=== PATIENT | male | born 1935 | race Caucasian/White ===

== ENCOUNTER 2016-11-26 18:59 | Inpatient (IN) ==
[2016-11-26] MEDS ORDERED: NS 1,000 ML IV ONE (19:59)
[2016-11-26] MEDS ORDERED: NS 500 ML IV ONE (19:59)
[2016-11-26] MEDS ORDERED: MERREM 1 GM in NS 50 ML IV ONE (20:05)
[2016-11-26] MEDS ORDERED: VANCOMYCIN IV PER PHARMACY MISC SCH (20:15)
[2016-11-26] MEDS ORDERED: ZOFRAN IV ONE (20:24)
[2016-11-26] MEDS ORDERED: TYLENOL PR ONE (20:24)
[2016-11-26 20:38] LABS: ALLEN TEST YES; BE 0.1 mmoll (-3.0-3.0); BLOOD TYPE ARTERIAL; DRAW SITE R BRACHIAL; METHB 0.5 % (0.0-1.5); O2(CT) 14.1 mL/dL (15.0-23.0); PCO2(98.6) 33 mmHg (35-45); PO2(98.6) 60 mmHg (60-100); SAMPLE BLOOD; SAO2 97.2 % (95.0-100.0); THB 10.6 g/dL (11.5-17.4); pH(98.6) 7.46 (7.35-7.45)
[2016-11-26 20:40] LABS: MODALITY CANNULA
[2016-11-26 20:49] LABS: BASO% 0.1 % (0.0-0.8); EOS# 0.05 X1000 (0.0-0.7); EOS% 0.2 % (0.0-10.0); HEMATOCRIT 34.6 % (42.0-52.0); HEMOGLOBIN 10.9 g/dL (14.0-18.0); IMM GRAN# 0.11 X1000 (0.0-0.04); IMM GRAN% 0.4 % (0.0-0.5); LYMPH# 0.95 X1000 (1.2-3.4); MCH 27.7 PG (27-31); MCHC 31.5 g/dL (33-37); MCV 87.8 FL (81-99); MONO# 0.72 X1000 (0.11-0.59); MONO% 2.3 % (1.7-9.3); MPV 10.6 FL (7.4-10.4); PLT 194 X1000 (130-400); RBC 3.94 XMIL (4.7-6.1)
[2016-11-26 20:56] LABS: INR 1.06; PROTIME 11.2 Seconds (9.2-11.7)
[2016-11-26 20:57] LABS: MANUAL DIFF NEEDED? NO
[2016-11-26 21:17] LABS: ALBUMIN 3.6 g/dL (3.5-5.0); CALCIUM 8.6 mg/dL (8.8-10.2); MAGNESIUM 1.5 mg/dL (1.5-2.7); POTASSIUM 4.4 mmol/L (3.5-5.1); TOTAL BILIRUBIN 0.35 mg/dL (0.20-1.00); TOTAL PROTEIN 7.2 g/dL (6.3-8.3)
[2016-11-26 21:38] LABS: URINE CULTURE NEEDED? NO; URINE MICRO REVIEW NEEDED? NO; URINE SOURCE CATH
[2016-11-26 21:41] LABS: BILIRUBIN URINE NEGATIVE (NEGATIVE); BLOOD URINE MODERATE (NEGATIVE); COLOR YELLOW; GLUCOSE URINE 500 mg/dL (NEGATIVE); LEUKOCYTES URINE NEGATIVE (NEGATIVE); NITRITE URINE NEGATIVE (NEGATIVE); PH URINE 5.5; PROTEIN URINE 100 mg/dL (NEGATIVE); SP GRAVITY URINE 1.018; TURBIDITY URINE HAZY (CLEAR); UR EPITHELIAL CELLS <10 /HPF (<10); URINE BACTERIA NEGATIVE /HPF; URINE RBC <10 /HPF (<10); URINE WBC <10 /HPF (<10); UROBILINOGEN URINE NORMAL (NORMAL)
[2016-11-26] MEDS ORDERED: VANCOMYCIN 1,600 MG in NS 250 ML IV ONE (22:00)
--- NOTE | 2016-11-26 22:14 | Diag Imaging Result Doc PS360 ---
EXAM: CHEST-PORTABLE HISTORY: SEPSIS TECHNIQUE: Portable COMPARISON: 01/27/2016 FINDINGS: Patient is rotated to the right. There are infiltrates in the mid and lower right lung with a small right effusion. The heart is mildly prominent. There is been prior surgery to the lower neck. No right-sided PICC line on the current exam. IMPRESSION: Infiltrates in the mid and lower right lung with small effusions and mild cardiomegaly. Electronically signed by Yassine Pruitt 11/26/2016 10:12 PM
--- NOTE | 2016-11-26 22:55 | PROVIDER DOCUMENTATION ---
This chart was entered by Corbin Lomas Scribe, acting as scribe for Jadon Bullard MD. HPI-Abdominal Pain/GI Problem - General Stated Complaint: vomiting, AMS Time Seen by Provider: 11/26/16 19:45 Source: EMS Allergies/Adverse Reactions: Patient Allergies Allergy/AdvReac Type Severity Reaction Status Date / Time Penicillins Allergy Severe SWELLING Verified 11/26/16 20:48 levofloxacin [From Levaquin] Allergy Mild RASH Verified 11/26/16 20:48 Home Medications: Home Medication List Medication Instructions Recorded Confirmed Last Taken Type Quetiapine Fumarate [Seroquel] 12.5 mg PO HS 05/02/15 10/31/16 10/30/16 21:00 History Tamsulosin [Flomax] 0.4 mg PO QHS 05/02/15 10/31/16 10/30/16 21:00 History Sertraline [Zoloft] 50 mg PO DAILY 07/11/15 10/31/16 10/30/16 09:00 History Isosorbide Mononitrate E.r. [Imdur] 60 mg PO DAILY 12/25/15 10/31/16 10/30/16 21 :00 History Amiodarone [Cordarone] 200 mg PO DAILY #30 tablet 12/31/15 10/31/16 10/30/16 09: 00 Rx Iron Carbonyl/Ascorbic Acid 1 each PO BID #30 tablet 01/26/16 10/31/16 10/30/16 20:00 Rx [Icar-C] Lactulose 30 ml PO BID #0 01/26/16 10/31/16 10/30/16 21:00 Rx Acetaminophen [Tylenol Extra 500 mg PO Q6H PRN PRN 07/01/16 10/31/16 08/03/16 History Strength] Ipratropium/Albuterol Sulfate 3 ml IH Q8H PRN PRN 07/01/16 10/31/16 08/03/16 History [Iprat-Albut 0.5-3(2.5) mg/3 ml] Metformin HCl 250 mg PO TID 07/01/16 10/31/16 10/30/16 21:00 History Linaclotide [Linzess] 145 mcg PO DAILY 08/03/16 10/31/16 10/30/16 09:00 History Ondansetron HCl [Zofran] 4 mg PO Q6H PRN PRN 08/03/16 10/31/16 08/03/16 History Trazodone HCl 50 mg PO HS 08/03/16 10/31/16 10/30/16 21:00 History Hydrocodone/APAP 10 mg/325 mg 1 each PO Q4H PRN PRN #30 tablet 08/05/1610/30/16 21:00 Rx [[place]-10] Insulin Glargine,Hum.rec.anlog 15 unit SQ DAILY 10/27/16 10/31/16 10/30/16 09: 00 History [Lantus Solostar] Clopidogrel [Plavix] 75 mg PO DAILY #30 tablet 11/01/16 Unknown Rx Collagenase Clostridium Hist. 1 applic TP DIRECTED #30 11/01/16 Unknown Rx [Santyl] oint...g. Hydralazine [Apresoline] 25 mg PO TID #90 tablet 11/01/16 Unknown Rx Hydrocodone/APAP 10 mg/325 mg 1 each PO Q4H PRN PRN #10 tablet 11/01/16 Unknown Rx [[place]-10] - History of Present Illness-ABD Nature of Presenting Problems: Pt is a 81 yowm who [facility] staff reports that at 1700 today, pt became acutely altered, developed rigors, fever (103.6 in ED), and vomiting. snf gave pt PO tylenol and zofran, but pt vomited it up. EMS was told pt was hyperglycemic and confirmed on site that pt's blood glucose level was 377 and pt was hot to the touch. Abdominal Pain Onset Location: reports: generalized abdomen Pain Radiation: reports: no radiation Quality of Pain: reports: other (unable to obtain per pt's condition) Severity in ED: reports: moderate, severe Onset/Duration: reports: 1-3 hours ago Timing: reports: still present Associated Symptoms: reports: fatigue, fever/chills, loss of appetite, malaise, nausea, vomiting, weakness, trouble walking. denies: anxiety, chest pain, constipation, cough, diarrhea, dizziness, headaches, heartburn, muscle aches, shortness of breath, syncope Last BM: unsure Review of Systems - Adult - REVIEW OF SYSTEMS - ADULT Constitutional: reports: chills, fever, fatique. denies: night sweats, weight gain, weight loss Eyes: reports: no symptoms reported Ears, Nose, Mouth & Throat: reports: no symptoms reported Cardiovascular: reports: no symptoms reported Respiratory: reports: no symptoms reported Gastrointestinal: reports: nausea, vomiting. denies: abdominal pain, hematemesis, constipation, diarrhea, difficulty swallowing, frequent heartburn, poor appetite, rectal bleeding Genitourinary: reports: no symptoms reported Musculoskeletal: reports: no symptoms reported Integumentary: reports: no symptoms reported Neurological: reports: no symptoms reported Psychiatric: reports: other (AMS). denies: anxiety, anti-depressant use, alcohol/drug dependence, depression, emotional problems, insomnia, panic attacks , suicidal thoughts Endocrine: reports: no symptoms reported Hematologic/Lymphatic: reports: no symptoms reported Allergic/Immunologic: reports: no symptoms reported All Other Systems: Reviewed and Negative Past History - Adult - PAST MEDICAL HISTORY-ADULT Review of Records: reports: Nursing Assessment Review, Medications Reviewed Cardiovascular: reports: A-Fib, CAD, CHF, HTN, palpitations, PVD Gastrointestinal: reports: GERD Genitourinary: reports: cancer Neurological: reports: spinal cord/brain injury Endocrine/Immune: reports: Diabetes - PRIOR SURGERIES/PROCEDURES Surgical/Procedure History: reports: back/neck (x4; neck Sx), other (head hematoma) - IMMUNIZATION STATUS Childhood Immunizations: NUTD, See Nurse Assessment Flu Vaccine: See Nurse Assessment Physical Exam-General - PHYSICAL EXAM-ADULT Initial Vital Signs Reviewed: Yes - CONSTITUTIONAL General Appearance: appears well, alert, moderate distress, other (Pt lying on right side, non-verbal) - RESPIRATORY Respiratory: chest non-tender, lungs clear, normal breath sounds, no pleuratic chest pain, no respiratory distress, no accessory muscle use. negative: respiratory distress, decreased breath sounds, accessory muscle use, wheezing - CARDIOVASCULAR Cardiovascular: normal peripheral pulses, tachycardia. negative: regular rate, rhythm, bradycardia, irregularly irregular - GASTROINTESTINAL (ABDOMEN) Abdominal Exam: normal bowel sounds, non tender, soft, no organomegaly, no pulsatile mass. negative: guarding, rebound, tenderness - PSYCHIATRIC Psych/Mental Status: disheveled. negative: normal mood/affect, normal thought content, normal thought process, oriented x 3 Progress - PLAN OF CARE/RESULTS Progress/Plan/Lab Results: Orders Category Date Time Status Cardiac Monitoring DIRECTED Care 11/26/16 19:54 Active Gibson Cath Insertion ORDERED Care 11/26/16 20:00 Active IV Insertion ORDERED Care 11/26/16 19:54 Active IV Insertion ORDERED Care 11/26/16 20:00 Active Intake and Output-Strict ORDERED Care 11/26/16 20:00 Active Notify MD of + Sepsis Screen NOW Care 11/26/16 19:54 Active Notify MD/PA/SALLY for exam NOW Care 11/26/16 20:00 Active Repeat Vital Signs .Blood Pressure Care 11/26/16 20:00 Active Repeat Vital Signs .Heart Rate Care 11/26/16 20:00 Active Repeat Vital Signs .Oxygen Saturation Care 11/26/16 20:00 Active Repeat Vital Signs .Respiratory Rate Care 11/26/16 20:00 Active Repeat Vital Signs .Temp Care 11/26/16 20:00 Active CHEST-PORTABLE [RAD] Stat Exams 11/26/16 20:07 Ordered ABG [RESP] Routine Lab 11/26/16 19:58 Ordered BLOOD CULTURE [BLDCUL] Stat Lab 11/26/16 19:54 Uncollected CBC WITH DIFF [HEME] Stat Lab 11/26/16 19:54 Uncollected CK PROFILE [SP CHEM] Stat Lab 11/26/16 19:54 Uncollected COMPREHENSIVE METABOLIC PANEL [CHEM] Stat Lab 11/26/16 19:54 Uncollected Ketone [ACETONE SERUM] [CHEM] Stat Lab 11/26/16 20:06 Uncollected LACTATE, PLASMA [CHEM] Stat Lab 11/26/16 19:54 Uncollected LACTATE, PLASMA [CHEM] Timed Lab 11/26/16 20:00 Received MAGNESIUM [CHEM] Stat Lab 11/26/16 19:58 Uncollected PROTIME WITH INR [COAG] Stat Lab 11/26/16 19:54 Uncollected PTT [COAG] Stat Lab 11/26/16 19:54 Uncollected TROPONIN T Stat Lab 11/26/16 19:54 Uncollected TYPE & SCREEN [BBK] Stat Lab 11/26/16 19:58 Uncollected URINALYSIS W/POSS RFLX CULT-1 [URINALYSIS] Stat Lab 11/26/16 19:54 Uncollected 0.9% Sodium Chloride Inj [Ns] 1,000 ml Med 11/26/16 19:59 Discontinued IV As Directed 0.9% Sodium Chloride Inj [Ns] 500 ml Med 11/26/16 19:59 Active IV 999 mls/hr Meropenem [Merrem] 1 gm Med 11/26/16 20:05 Active 0.9% Sodium Chloride Inj [Ns] 50 ml IV NOW Pharmacy Order [Vancomycin IV Per Pharmacy] Med 11/26/16 20:15 Ordered 1 each MISC DIRECTED Oxygen Device Stat Oth 11/26/16 19:54 Active Result Diagrams: 11/26/16 20:17 11/26/16 20:17 - XRAY 1 XRAY: Bilateral XRAY Study: Chest Impression: See EMR Report XRAY Interpretation: RLL pneumonia - Dr. Bullard Departure - Departure Date of Disposition Decision: 11/26/16 Time of Disposition Decision: 20:19 DIAGNOSIS: Sepsis Qualifiers: Sepsis type: sepsis due to unspecified organism Qualified Code(s): A41.9 - Sepsis, unspecified organism Pneumonia involving right lung Qualifiers: Pneumonia type: due to unspecified organism Disposition: ADMITTED INPATIENT 09 Certified Medical Emergency: Emergent Condition: Serious Referrals and Follow-Ups: None,PCP [Primary Care Provider] - - Critical Care Note This patient required my direct & personal management of CC.: No This chart was documented by the indicated scribe, (Corbin Lomas Scribe) and accurately reflects the services I performed and decisions made by me, Jadon Bullard MD, as attested by the provider's signature.
--- NOTE | 2016-11-26 23:24 | HISTORY AND PHYSICAL ---
PRIMARY CARE PHYSICIAN: None, is assisted resident. CHIEF COMPLAINT: Of having fever, chills for 3-4 days. HISTORY OF PRESENTING ILLNESS: An 80-year-old elderly male with a history of diabetes mellitus type 2, coronary artery disease, CVA, atrial fibrillation and dementia who is a resident of [facility] assisted. Was brought to the emergency department due to patient having fever and chills for the past 3 days. As per staff there they noticed that patient was trembling and he seemed to be more weak than usual and subsequently he was sent to the emergency department. At ER he was evaluated. He had imaging done which was consistent with pneumonia and due to his presenting symptoms, it was thought that he would need hospitalization for further management. At the time of my examination he had denied any headache, chest pain, hemoptysis, melena, but complained of having cough productive, fever, chills and not feeling well. PAST MEDICAL HISTORY: Include diabetes mellitus type 2, peripheral vascular disease, coronary artery disease, CT, dementia, CVA, atrial fibrillation, intracranial hemorrhage. PAST SURGICAL HISTORY: Tibial bypass, coronary stent, left forefoot amputation, back surgery, neck surgery, craniotomy for intracranial bleed. ALLERGIES: Penicillin and Levaquin. CURRENT MEDICATIONS: As listed in MAR. SOCIAL HISTORY: He is a former smoker. No history of alcohol or illicit drug use. Mostly wheelchair bound but is able to transfer with assistance. FAMILY HISTORY: Positive for coronary disease in father. REVIEW OF SYSTEMS: Twelve point review of system is as in HPI. Other systems negative. PHYSICAL EXAMINATION: GENERAL: Frail elderly male. He is resting comfortably now. VITAL SIGNS: Temperature 102.2 degrees, pulse 75, respiration is 20, blood pressure is 165/62. HEENT: Atraumatic, normocephalic. PERRLA. NECK: No masses. CHEST: Bibasilar rales. CARDIOVASCULAR: Regular rate and rhythm. ABDOMEN: Soft. Positive bowel sounds. EXTREMITIES: Left forefoot amputation. No edema. NEURO: He is awake, alert, oriented x2. : No bladder distention. SKIN: Warm. LABORATORIES AND STUDIES: WBCs 31.28, hemoglobin 10.9, hematocrit 34.6, platelets is 194,000. Sodium 136, potassium 4.4, chloride 97, CO2 is 22, BUN is 29, creatinine is 1.2, glucose is 284, plasma lactic 2.7. ASSESSMENT: 81-year-old male with a history of diabetes mellitus type 2, coronary disease, cerebrovascular accident and dementia, was brought to the emergency department from assisted due to patient having fever and chills and a productive cough. He was evaluated in the emergency room, he had imaging done which did show infiltrates in the mid and lower right lung consistent with pneumonia. Subsequently he will need hospitalization further management. ASSESSMENT: 1. Pneumonia. 2. Diabetes mellitus type 2. 3. History of coronary disease. 4. Dementia. PLAN: 1. We will admit patient to medical floor with telemetry. 2. We will check blood cultures. Start patient on IV antibiotics. 3. Monitor blood glucose and put patient on sliding scale insulin regimen. 4. We will resume patient's assisted medications. 5. Put patient on DVT prophylaxis with SCDs. 6. We will continue to follow and reassess. cc: Luis Eduardo Giron MD
[2016-11-27] MEDS ORDERED: VANCOMYCIN IV PER PHARMACY MISC SCH (00:28)
[2016-11-27] MEDS ORDERED: DILAUDID IV ONE (00:56)
[2016-11-27] MEDS: MERREM 1 GM in NS 50 ML IV SCH ×3 (05:28→21:57)
[2016-11-27 07:03] LABS: EOS# 0.01 X1000 (0.0-0.7); HEMATOCRIT 33.8 % (42.0-52.0); HEMOGLOBIN 10.6 g/dL (14.0-18.0); IMM GRAN% 0.4 % (0.0-0.5); LYMPH# 0.96 X1000 (1.2-3.4); LYMPH% 1.9 % (20.5-51.1); MANUAL DIFF NEEDED? YES; MCH 27.8 PG (27-31); MCHC 31.4 g/dL (33-37); MCV 88.7 FL (81-99); MONO# 1.96 X1000 (0.11-0.59); MONO% 3.9 % (1.7-9.3); MPV 10.8 FL (7.4-10.4); NEUT% 93.8 % (42.2-75.2); PLT 172 X1000 (130-400); RBC 3.81 XMIL (4.7-6.1)
[2016-11-27 07:06] LABS: CALCIUM 8.3 mg/dL (8.8-10.2); POTASSIUM 5.5 mmol/L (3.5-5.1)
[2016-11-27 07:49] LABS: BANDS 12 % (0-1); HYPOCHROM 1+; MONO 2 % (1-9)
[2016-11-27] MEDS: HUMULIN R SUBQ SCH ×4 (08:15→21:57)
[2016-11-27] MEDS ORDERED: DUONEB (A & A) INH PRN (11:26)
[2016-11-27] MEDS: DUONEB (A & A) INH SCH ×3 (11:54→21:38)
[2016-11-27] MEDS ORDERED: TYLENOL PO PRN (12:45)
[2016-11-27] MEDS: NORCO-10 PO PRN ×2 (14:23→22:19)
[2016-11-27] MEDS: GLUCOPHAGE PO SCH ×2 (14:24→16:59)
[2016-11-27] MEDS: LINZESS PO SCH (14:53)
[2016-11-27] MEDS: IMDUR PO SCH (14:53)
[2016-11-27] MEDS: CORDARONE PO SCH (14:53)
--- NOTE | 2016-11-27 15:51 | PROGRESS NOTE ---
DATE: 11/27/2016 SUBJECTIVE: Mr. Rosales was sitting up on the side of the bed, was breathing, working a little bit to breathe, but moving air fairly well. He did not really want to wear the mask. OBJECTIVE: Vital signs: Temperature was 97.8 degrees, pulse 60, respirations 18, blood pressure 121/48. HEENT: Pupils are equal, lungs are clear in all lung mckenzie. Cardiovascular: Regular rhythm and rate without murmur or S3. Abdomen: Soft. Skin: Is warm and dry. DATA: White count on admission 49,960, hematocrit 33, platelet count 172,000. Sodium 137, potassium 5.5, chloride 100, bicarb 27, BUN 30, creatinine 1.3. Magnesium was 1.5, albumin was 3.6, ProTime was 11.2, acetone level was negative. Urine clear. ABGs on arrival, pH was 7.46, pCO2 33, PO2 60, O2 saturation was 94%. Infiltrates in the mid and lower right lung with small effusion and mild cardiomegaly. DISCUSSION: Patient admitted yesterday. 81-year-old, history of diabetes mellitus type 2, coronary artery disease, CVA, atrial fibrillation, dementia, present at [facility] [place]. Brought to the emergency department having fever and chills for last 3 days. As per staff, noticed that he was trembling and seemed to be more weak than usual. Subsequently, he was sent to the emergency department. In ER, he was evaluated. Imaging was done consistent with pneumonia, due to presenting symptoms, we thought it would be better to be hospitalized. PAST MEDICAL HISTORY: Diabetes mellitus type 2, peripheral vascular disease, coronary artery disease, history of myocardial infarction, dementia, CVA, atrial fibrillation, intracranial hemorrhage. He has had triple bypass, coronary stents, left forefoot amputation, back surgery, neck surgery, craniotomy for intracranial bleed in the past. ALLERGIES: Allergic to penicillin and Levaquin. On exam today, sitting up, appears comfortable, exam as above. ASSESSMENT AND PLAN: 1. Pneumonia, underlying chronic obstructive pulmonary disease. We will treat him with IV antibiotics, bronchodilators, supplementary O2. We have him on meropenem 1 g given and then vancomycin. Meropenem will be 1 g q.8 hours, vancomycin 1400 mg q.24 hours. Awaiting cultures. We will have to consider this a hospital-acquired pneumonia acquired, this appears to be in the detention. 2. Chronic obstructive pulmonary disease exacerbation. 3. Diabetes mellitus type 2. Will pattern sugars. Put on sliding scale. 4. History of coronary artery disease. History of myocardial infarction status post bypass and some stents. 5. Underlying dementia. Decided to go through his medication list and continue his present medications. Looks like he is on vitamin A 10,000 units a day, trazodone 50 mg a day, Flomax 0.4 mg b.i.d., Zoloft 50 mg a day, Seroquel 25 mg at bedtime, multivitamin 1 a day, metformin 500 mg t.i.d., Linzess 145 mcg a day, lactulose 30 mL b.i.d., isosorbide mononitrate 60 mg a day, Icar 1 b.i.d., ipratropium, albuterol q.8 hours p.r.n., SoloSTAR 15 units subcutaneous daily, hydrocodone 10 mg q.4 hours, hydralazine 25 mg p.o. t.i.d., Flagenase for Clostridium, Plavix 75 mg daily, Cleocin 300 mg a day which we are going to hold, Francisco Javier packet 1 packet b.i.d., Cordarone 200 mg a day, acetaminophen 500 mg q.6 hours p.r.n. cc: Daniele Villarreal MD
[2016-11-27] MEDS: SEROQUEL PO SCH (21:57)
[2016-11-27] MEDS: LACTULOSE PO SCH (21:57)
[2016-11-27] MEDS: FLOMAX PO SCH (21:57)
[2016-11-27] MEDS: DESYREL PO SCH (21:57)
[2016-11-27] MEDS: NON-FORMULARY MED (Arginine/Glutamine/Calcium Hmb [Juven Packet] 1 PACKET) PO SCH (22:55)
[2016-11-27] MEDS: VANCOMYCIN 1,400 MG in NS 250 ML IV SCH (22:56)
[2016-11-28] MEDS: DUONEB (A & A) INH SCH ×4 (03:45→23:14)
[2016-11-28] MEDS: MERREM 1 GM in NS 50 ML IV SCH ×3 (04:28→20:09)
[2016-11-28] MEDS: HUMULIN R SUBQ SCH ×4 (07:02→23:05)
[2016-11-28] MEDS ORDERED: INSULIN PEN NEEDLES ONE (07:45)
[2016-11-28] MEDS: CORDARONE PO SCH (09:05)
[2016-11-28] MEDS: IMDUR PO SCH (09:05)
[2016-11-28] MEDS: LACTULOSE PO SCH ×2 (09:05→20:10)
[2016-11-28] MEDS: LINZESS PO SCH (09:05)
[2016-11-28] MEDS: GLUCOPHAGE PO SCH ×3 (09:05→17:31)
[2016-11-28] MEDS: PLAVIX PO SCH (09:05)
[2016-11-28] MEDS: NORCO-10 PO PRN ×3 (09:15→17:27)
[2016-11-28] MEDS: FLOMAX PO SCH ×2 (09:34→20:10)
[2016-11-28] MEDS: LANTUS SUBQ SCH (09:39)
[2016-11-28] MEDS: NON-FORMULARY MED (Arginine/Glutamine/Calcium Hmb [Juven Packet] 1 PACKET) PO SCH ×2 (09:40→20:27)
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
[2016-11-28] MEDS: SEROQUEL PO SCH (20:10)
[2016-11-28] MEDS: DESYREL PO SCH (20:10)
[2016-11-28] MEDS: VANCOMYCIN 1,400 MG in NS 250 ML IV SCH (23:16)
[2016-11-29] MEDS: DUONEB (A & A) INH SCH ×3 (03:35→21:15)
[2016-11-29] MEDS: MERREM 1 GM in NS 50 ML IV SCH ×2 (05:02→15:30)
[2016-11-29] MEDS: HUMULIN R SUBQ SCH ×4 (06:15→22:18)
[2016-11-29] MEDS: NORCO-10 PO PRN ×2 (09:41→19:32)
[2016-11-29] MEDS: PLAVIX PO SCH (11:05)
[2016-11-29] MEDS: LINZESS PO SCH (11:05)
[2016-11-29] MEDS: LACTULOSE PO SCH ×2 (11:05→21:13)
[2016-11-29] MEDS: GLUCOPHAGE PO SCH ×3 (11:05→19:28)
[2016-11-29] MEDS: CORDARONE PO SCH (11:05)
[2016-11-29] MEDS: IMDUR PO SCH (11:05)
[2016-11-29] MEDS: FLOMAX PO SCH ×2 (11:05→21:13)
[2016-11-29] MEDS: NON-FORMULARY MED (Arginine/Glutamine/Calcium Hmb [Juven Packet] 1 PACKET) PO SCH ×2 (11:15→21:14)
[2016-11-29] MEDS: LANTUS SUBQ SCH (11:47)
--- NOTE | 2016-11-29 16:30 | Diag Imaging Result Doc PS360 ---
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 There is subcutaneous edema in the forefoot. There has been amputation of the toes on the left at the level of the distal metatarsals. There are no recent plain radiographs available for correlation. There is some periarticular osteoporosis or erosion present at the first metatarsotarsal joint. 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 Further evaluation with MRI may be desirable. IMPRESSION: Postsurgical changes with osteoporosis, soft tissue swelling, and bony erosions as described. Electronically signed by Amadou Bernardo 11/29/2016 4:27 PM
[2016-11-29] MEDS: DESYREL PO SCH (21:13)
[2016-11-29] MEDS: SEROQUEL PO SCH (21:14)
--- NOTE | 2016-11-30 03:42 | CONSULTATION ---
DATE OF CONSULTATION: 11/29/2016 ADDENDUM: CONCLUSION: The patient has a methicillin-resistant Staphylococcus aureus bacteremia. Exactly where it originates from is uncertain. I think there are many possibilities. The patient has a right-sided pulmonary infiltrates and he could have a methicillin-resistant Staph aureus pneumonia with an associated bacteremia. Alternatively, he could have had bacteremia originated from some other source such as his legs which hematogenously involve the lung. Certainly endocarditis is a diagnostic possibility as well. The patient's left foot felt fluctuant and with an 18-gauge needle, I did open it where it was fluctuant and sanguinopurulent fluid came out. Therefore, I think there is a possibility the patient may have an abscess in that foot. RECOMMENDATIONS: I agree with Dr. Hobbs's decision to place the patient on vancomycin. I have discontinued meropenem. I have ordered a culture on the fluid we obtained from the patient's left foot. Also, I have requested an echocardiogram. Finally, I have ordered a noncontrasted CT scan of the left foot to see if there is any evidence of bone involvement or remaining abscess. DISCUSSION: The patient was unable to provide a history. His daughter was there, and she tells me that approximately 4 days ago the patient's left foot became more erythematous and swollen. He also has some shortness of breath, cough, and fever. He was brought to the hospital and has been admitted. His studies thus far show a CBC with a white count of 49,960. Hemoglobin 10.6 and platelet count 172,000 creatinine is 1.3. GFR is 53. Blood cultures are growing methicillin- resistant. Chest x-ray showed right lung infiltrates. PAST MEDICAL HISTORY/REVIEW OF SYSTEMS: This was unable to be obtained from the patient and the daughter was not able to answer most questions in that regard, that I after. Our previous hospitalizations and operations, he has multiple surgeries on his legs including his ankles and left foot. 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 He has had peripheral vascular disease surgery. He has had a cholecystectomy, bilateral cataract surgery, a stroke, coronary artery disease with a myocardial infarction, at which time, and stents were placed in the coronary arteries. He has had surgery on the spine and in the lower spine. Also, he has had an intracranial operation as well. The patient has had a cholecystectomy also. MEDICAL DISEASES: Positive for end-stage renal disease, cataracts, peripheral vascular disease, stroke, myocardial infarction with coronary artery disease. 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 SURGICAL HISTORY: Positive for placement of stents and multiple leg procedures. Patient also had surgery on his son neck and back as well and a left foot transmetatarsal amputation. Item in on family history is [place] here and. FAMILY HISTORY: Positive for diabetes mellitus, and hypertension. SOCIAL HISTORY: [facility]. He does not smoke cigarettes or drink alcoholic beverages. He does not abuse drugs. His chart lists allergies to penicillin and Levaquin. The patient has tolerated Keflex well in the past and, while in the hospital here, he tolerated meropenem well also. RESIDENTIAL MEDICATIONS: 1. Zoloft 2. Iron. 3. Ipratropium. 4. Hydrocodone. 5. Hydralazine. 6. Santyl. 7. Clindamycin. 8. Vitamins and minerals. 9. Hydrocodone. 10. Acetaminophen. 11. Trazodone. 12. Zofran. 13. Flomax. 14. Lactulose. 15. Metformin. 16. Seroquel. 17. Imdur. 18. Linzess 19. Amadarone. 20. Plavix. 21. Insulin. PHYSICAL EXAMINATION: Vital Signs: Temperature is 98.5 degrees, pulse 73, respirations 18, blood pressure 135/87. General: This is a chronically ill-appearing, elderly male. He is in no acute distress. Head, eyes, ears, nose, and throat. He appeared to be able to hear my spoken words and see near objects. He was able to carry on a conversation for a short period of time. Neck: No meningismus. Thorax: No increased AP diameter of the chest. Lungs: Clear to auscultation. Cardiovascular: Heart rate was regular. There were diminished peripheral pulses. Abdomen Soft and nontender. Extremities: Both legs had multiple dressings on them. The pictures taken earlier in the day on the leg showed multiple erythematous areas and the ulcerated areas on the feet as well. 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 The foot is erythematous and it was fluctuant laterally where I opened it up with a needle and a large amount of sanguinopurulent fluid came out that did have a foul odor. Thank you for the consult. cc: Joe Zarate MD
[2016-11-30] MEDS: DUONEB (A & A) INH SCH ×4 (03:50→22:05)
[2016-11-30] MEDS: HUMULIN R SUBQ SCH ×4 (06:50→22:40)
--- NOTE | 2016-11-30 08:44 | CONSULTATION ---
DATE OF CONSULTATION: 11/30/2016 HISTORY OF PRESENT ILLNESS: Mr. Carlos Alberto Rosales is an 81-year-old white male diabetic with known peripheral vascular disease and chronic atrial fibrillation and dementia. He is a longterm resident, and he also has chronic renal insufficiency. Approximately 1 month ago he underwent atherectomies of his arteries involving his right lower extremity, and he continues to have a palpable dorsalis pedis pulse at the right foot. He has developed drainage and cellulitis involving a transmetatarsal amputation. He has also developed an ulcer on the plantar surface laterally involving what is left of his left foot, and he was admitted with fever and chills. X- rays suggest osteoporosis or even osteomyelitis. He is also being treated for pneumonia. PAST MEDICAL HISTORY: Diabetes, known peripheral vascular disease and coronary artery disease, history of myocardial infarction, dementia, history of stroke, intracranial hemorrhage and chronic atrial fibrillation. PAST SURGICAL HISTORY: Coronary artery stent, left forefoot amputation, peripheral vascular surgery, back surgery and neck surgery, and craniotomy for intracranial bleed. ALLERGIES: Penicillin and Levaquin. MEDICATIONS: As listed in the chart. SOCIAL HISTORY: He used to smoke. He is mostly wheelchair bound. He does offer assistance with transfers. FAMILY HISTORY: Peripheral vascular disease and coronary artery disease. REVIEW OF SYSTEMS: A 14-point review of systems was performed and, besides his multiple medical problems and his recent left transmetatarsal infection, it was essentially negative. PHYSICAL EXAMINATION: General: Mr. Rosales is elderly. He looks pale, chronically ill, slim. He does awaken and follow instructions. Neck: He has no jaundice. No oral lesions. No cervical or supraclavicular lymphadenopathy. Heart: He has an irregular rate when auscultating his heart. Lungs: Essentially clear with some crackles, but he had no obvious work of breathing. Abdomen: Flat, not tender. Extremities: He has palpable femoral pulses bilaterally. He had a palpable dorsalis pedis pulse right foot; the left foot has a transmetatarsal amputation. He has cellulitis involving this amputation and drainage from a lateral plantar wound left transmetatarsal. Rectal Exam: Not performed. IMPRESSION: Recent vascular surgery involving the right lower extremity. It appears to be successful with good flow to the right foot with a palpable dorsalis pedis pulse. He has infection of the left transmetatarsal amputation. This transmetatarsal amputation appears to be well healed, but now has drainage from an ulcer plantar aspect lateral transmetatarsal amputation. There is cellulitis involving this amputation. PLAN: He will need debridement of this draining ulcer and IV antibiotics and wound care. cc: Vanessa Uribe MD
[2016-11-30] MEDS: LACTULOSE PO SCH ×2 (08:59→22:39)
[2016-11-30] MEDS: LANTUS SUBQ SCH (08:59)
[2016-11-30] MEDS: LINZESS PO SCH (08:59)
[2016-11-30] MEDS: IMDUR PO SCH (08:59)
[2016-11-30] MEDS: FLOMAX PO SCH ×2 (08:59→22:39)
[2016-11-30] MEDS: CORDARONE PO SCH (08:59)
[2016-11-30] MEDS: PLAVIX PO SCH (08:59)
[2016-11-30] MEDS: GLUCOPHAGE PO SCH ×3 (08:59→18:15)
[2016-11-30] MEDS: NON-FORMULARY MED (Arginine/Glutamine/Calcium Hmb [Juven Packet] 1 PACKET) PO SCH ×2 (13:10→22:39)
[2016-11-30] MEDS: VANCOMYCIN 1,400 MG in NS 250 ML IV SCH (13:42)
--- NOTE | 2016-11-30 13:59 | ECHO REPORT ---
ORDER DATE: 11/29/2016 MEASUREMENTS: 1. Left ventricular end-diastolic diameter 4.5. 2. Septal thickness 1.5. 3. Left atrium 4.5. 4. Aortic root 3.8. SUMMARY: 1. Technically difficult study due to limited acoustic window quality. 2. Fibrocalcific changes of aortic valve demonstrated with reduced aortic valve leaflet mobility. Peak gradient across aortic valve is 33 mmHg with a mean gradient of 19 mmHg. Calculated aortic valve area is 1.4 cm2, suggesting mild to moderate aortic stenosis. There is mild aortic regurgitation. Mitral annular calcification is demonstrated, along with mild thickening of mitral valve leaflets. There is trace mitral regurgitation. Tricuspid and pulmonic valves are without structural abnormality, with mild tricuspid regurgitation. Estimated systolic PA pressure by Doppler is 30-35 mmHg. Aortic root is mildly enlarged. 3. Normal left ventricular chamber size with mild to moderate concentric left hypertrophy suggested. Estimated left ejection fraction appears to be at least 65%. No regional wall motion abnormalities can be appreciated. Mccarr and left ventricle is not well imaged. Left atrium is mildly enlarged. Right atrium and right ventricle are grossly normal size with grossly preserved right ventricular systolic function. 4. No pericardial effusion. 5. Appearance of inferior vena cava suggests normal central venous pressure. CONCLUSIONS: 1. Technically difficult study. 2. Mild to moderate aortic stenosis with mild aortic regurgitation. 3. Mild tricuspid regurgitation with estimated systolic PA pressure 30-35 mmHg. 4. Mild to moderate concentric left hypertrophy with estimated left ejection fraction at least 65%. 5. Mild left atrial enlargement. 6. If clinical index of suspicion for endocarditis is sufficient, consider transesophageal echocardiography to increase yield for detecting valvular vegetations. cc: MD Joe Richards MD MTDD
--- NOTE | 2016-11-30 15:26 | PROGRESS NOTE ---
DATE: 11/30/2016 SUBJECTIVE: Patient states he is not feeling well. He reports some abdominal pain and some diarrhea. He has been seen by [facility] for ulcer on the plantar surface of the left foot. Questionable osteomyelitis. He has had peripheral vascular disease and arthrectomies of the arteries involving his right lower extremity. He did show positive for MRSA of the blood. Dr. Zarate is following. We were asked to see him due to some abdominal pain and episodes of nausea and vomiting. There is no family at the bedside. I did talk with Dr. Villarreal yesterday. Nurse reports diarrhea. OBJECTIVE: Vital signs: Temperature 98.8 degrees, pulse 86, heart rate 63, blood pressure 143/69. General: The patient is lying in bed in no acute distress. He is awake, alert, he does have a history of dementia. Respiratory: Clear bilaterally. Abdomen : With some pain to the left quadrant. He does have a noted hernia. Abdomen is otherwise soft with positive bowel sounds. : Gibson catheter in place. Lower extremities: With wound dressing to legs and feet. LABORATORY: Hematology from 11/27/2016, WBC 49.96, hemoglobin 10.6, hematocrit 33.8. Chemistry: Sodium 137, potassium 5.5, chloride 100, CO2 27, BUN 30, creatinine 1.3, glucose 308. ASSESSMENT AND PLAN: 1. Peripheral vascular disease with recent vascular surgery to the right lower extremity. Infection of the left amputation. Cellulitis. He has been seen by Dr. Uribe. He recommended debridement of the ulcer and IV antibiotics with wound care. 2. Methicillin-resistant Staphylococcus aureus of the blood. Dr. Zarate is following. 3. Abdominal pain, nausea. 4. Diarrhea. We will get stool for C. difficile toxin, ova and parasite, stool culture. Repeat lab work in the morning, complete blood count, complete metabolic panel. Further plans will be made according to findings. We will continue to follow. Dictated by SALLY Shaw for Omi García MD cc: SALLY Tatum MD [facility]
--- NOTE | 2016-11-30 16:43 | PROGRESS NOTE ---
DATE: 11/30/2016 SUBJECTIVE: He is resting, appears to be comfortable. He has had loose stool consistently. OBJECTIVE: Vital signs: Temperature 98 degrees, pulse 63, respirations 18, blood pressure 143/69, CVP less than 6 cm. Lungs: Clear in all lung mckenzie. Cardiovascular: Regular rhythm and rate without murmur or S3. : Good urine output, 2300 mL. LABORATORY DATA: Blood sugars 170, 145, 224. ASSESSMENT AND PLAN: 1. Methicillin-resistant staphylococcus aureus bacteremia. Exactly where it originates is not certain. Patient has right-sided pulmonary infiltrates. Could have methicillin-resistant Staph aureus pneumonia associated with bacteremia and also could be bacteremia associated with his legs and feet. This could be the primary and hematogenous spread to the lungs. Certainly endocarditis is a possibility. Echocardiogram was obtained, transesophageal echocardiogram and technically a difficult study. No sign of vegetation; however, if clinical suspicion index is sufficient, need to consider transesophageal echo. 2. Recent vascular surgery involving right lower extremity appears to be successful. Good flow to the right foot. Palpable dorsalis pedis pulses. He has infection of the left transmetatarsal amputation. This appears to be well healed. There is drainage from the ulcer, plantar aspect, lateral transmetatarsal amputation. Continue antibiotics. 3. Encourage p.o. intake. 4. Dementia. Note he will need debridement of this draining ulcer. Continue IV antibiotics and wound care. 5. Lastly, loose stool. I sent stool off for culture. Review of his orders: He is on vancomycin 1400 mg q.36 hours. I should also mention he has benign prostatic hypertrophy. He is on Flomax 0.4 mg b.i.d. He is taking Desyrel 50 mg at bedtime, Seroquel 25 mg at bedtime, metformin 500 mg t.i.d., Linzess 145 mg p.o. daily, lactulose 30 mL b.i.d., isosorbide 60 mg a day, Plavix 75 mg a day, amiodarone 200 mg a day. Nusrat Smith is watching the skin. He has a right lateral ankle which has stage III pressure ulcer. There has been some trauma to the right meyer with some irregular wound beds and trauma to the left meyer as well with some irregular wound beds. Right hip is stage III. Left plantar there is at 3.2 x 3 x 0 intact purple fluid-filled blisters and callus noted. Planning on debridement. cc: Daniele Villarreal MD
--- NOTE | 2016-11-30 18:05 | PROGRESS NOTE ---
DATE: 11/30/2016 PRESENT ILLNESS: The patient has a methicillin-resistant Staph aureus bacteremia. The fluid that I obtained from the patient's left foot is growing gram positive cocci which most likely will turn down attendant to be the same methicillin-resistant Staph aureus that is in the blood. The foot has an abscess with that and also on CT scan there is a possibility that there is osteomyelitis as well. Finally the patient does have a pulmonary infiltrate and I would think this too would be due to methicillin-resistant Staph aureus as either a primary source of the bacteremia or secondary involvement by the bacteremia. MEDICATIONS: The patient is receiving vancomycin. PHYSICAL EXAMINATION: Vital Signs: Temperature is 98 degrees, pulse 63, respirations 18, blood pressure 143/69. General: This is a chronically ill-appearing, elderly male. He is in no acute distress. Lungs: Clear to auscultation. Cardiovascular: Heart rate was for the most part, regular. At times I thought it was irregular. Abdomen: Soft and nontender. Extremities: Both legs have multiple dressings on them. The left foot also has a dressing around it and all the dressings are intact. LABORATORY AND X-RAY: The blood culture is growing methicillin-resistant Staph aureus. The echocardiogram does not show any evidence of vegetations. CT scan of the foot did not show an abscess but did show there is a possibility of osteomyelitis. There is not a CBC or BMP for today. ASSESSMENT AND PLAN: Patient has methicillin-resistant Staph aureus bacteremia pneumonia, foot abscess, foot osteomyelitis. Plan now is to continue with vancomycin. I plan to repeat the CBC and BMP tomorrow morning. COMORBIDITIES: He is elderly. He also has end-stage renal disease, peripheral vascular disease. cc: Joe Zarate MD
[2016-11-30] MEDS: SEROQUEL PO SCH (22:39)
[2016-11-30] MEDS: DESYREL PO SCH (22:39)
[2016-11-30] MEDS: NORCO-10 PO PRN (22:50)
[2016-12-01] MEDS: DUONEB (A & A) INH SCH ×5 (03:14→20:17)
[2016-12-01] MEDS: HUMULIN R SUBQ SCH ×4 (06:26→20:59)
[2016-12-01] MEDS: NORCO-10 PO PRN ×4 (06:26→21:02)
[2016-12-01 07:17] LABS: BASO% 0.2 % (0.0-0.8); EOS# 0.06 X1000 (0.0-0.7); EOS% 0.5 % (0.0-10.0); HEMATOCRIT 34.8 % (42.0-52.0); HEMOGLOBIN 10.8 g/dL (14.0-18.0); IMM GRAN# 0.71 X1000 (0.0-0.04); IMM GRAN% 5.7 % (0.0-0.5); LYMPH# 0.81 X1000 (1.2-3.4); LYMPH% 6.5 % (20.5-51.1); MANUAL DIFF NEEDED? NO; MCH 27.4 PG (27-31); MCV 88.3 FL (81-99); MONO# 0.86 X1000 (0.11-0.59); MONO% 6.9 % (1.7-9.3); MPV 10.6 FL (7.4-10.4); NEUT% 80.2 % (42.2-75.2); PLT 200 X1000 (130-400); RBC 3.94 XMIL (4.7-6.1)
[2016-12-01 07:34] LABS: CALCIUM 9.5 mg/dL (8.8-10.2); POTASSIUM 5.4 mmol/L (3.5-5.1)
[2016-12-01] MEDS: NON-FORMULARY MED (Arginine/Glutamine/Calcium Hmb [Juven Packet] 1 PACKET) PO SCH ×2 (09:00→21:03)
[2016-12-01] MEDS: LINZESS PO SCH (10:44)
[2016-12-01] MEDS: CORDARONE PO SCH (10:44)
[2016-12-01] MEDS: LACTULOSE PO SCH ×2 (10:44→21:02)
[2016-12-01] MEDS: FLOMAX PO SCH ×2 (10:44→21:02)
[2016-12-01] MEDS: LANTUS SUBQ SCH (10:44)
[2016-12-01] MEDS: PLAVIX PO SCH (10:44)
[2016-12-01] MEDS: IMDUR PO SCH (10:44)
[2016-12-01] MEDS: GLUCOPHAGE PO SCH ×3 (10:44→16:27)
--- NOTE | 2016-12-01 11:28 | PROGRESS NOTE ---
DATE: 12/01/2016 SUBJECTIVE: The patient is feeling well. Has no complaint. No fever. No chills. No nausea, vomiting, or diarrhea. PHYSICAL EXAMINATION: Vital Signs: Blood pressure 167/53, pulse of 59, respirations 20, temperature of 97.4 degrees, saturation of 98% on room air. General Appearance: Elderly, white male, in no acute distress. Appears to be demented. HEENT: Anicteric sclerae. Clear conjunctivae. Neck: Supple. No bruit. Cardiovascular: S1 and S2. Slightly bradycardic but normal rate and rhythm. No murmurs, rubs, or gallops. Pulmonary: Clear to auscultation bilaterally. GI: Soft, nontender, nondistended. Normoactive bowel sounds. Musculoskeletal: No clubbing, cyanosis, or edema. LABORATORY: WBC 12.49, hemoglobin 10.8, hematocrit of 34.8, platelets of 200,000. Chemistry: Sodium 140, potassium 5.4, chloride 100, bicarb 30, BUN 24, creatinine 1.2, glucose of 96. Echocardiogram showed an EF of 65%. No obvious vegetations noted. ASSESSMENT AND PLAN: This is an 81-year-old, white male admitted to the hospital for methicillin- resistant Staphylococcus aureus bacteremia, possibly due to pneumonia. 1. Methicillin-resistant Staphylococcus aureus pneumonia and bacteremia. We will continue Zosyn for now. We will consult pharmacy to dose the vancomycin. Echocardiogram did not show any evidence of vegetations. X-ray showed infiltrate in the mid and lower right lung. 2. Dementia. baseline. Appears to be comfortable. 3. Benign prostatic hypertrophy. We will continue Flomax. 4. Insomnia. Continue trazodone. 5. History of coronary artery disease. Continue Plavix. 6. Depression. Continue Zoloft. 7. Diabetes. Continue Lantus and sliding scale insulin. The patient is also on metformin. We will keep the patient on that regimen for now. He has been doing well for several days. 8. Code status. The patient is a full code. No surrogate decision makers designated. 9. Deep vein thrombosis prophylaxis. We will put the patient on Lovenox.
[2016-12-01] MEDS: APRESOLINE PO SCH ×2 (13:54→21:02)
[2016-12-01] MEDS: ZOFRAN PO PRN (13:54)
--- NOTE | 2016-12-01 16:10 | PROGRESS NOTE ---
DATE: 12/01/2016 PRESENT ILLNESS: The patient has methicillin-resistant Staph aureus infection of his left foot as manifested by a culture taken from drainage from the foot. He also has methicillin-resistant Staph aureus in his blood. I think that the patient's bacteremia most likely arose from an infection in his foot. Also the patient did have pulmonary infiltrate on the chest x-ray which could well represent a hematogenous pneumonia. The pneumonia would have arisen from the infected foot also through the bacteremia. MEDICATIONS: The patient is receiving vancomycin as a single antibiotic. PHYSICAL EXAMINATION: Vital Signs: Temperature is 97.4 degrees, pulse 59, respirations 20, blood pressure 167/53. General: This is an ill-appearing, elderly male. Today he actually looks fairly good but he does appear chronically ill. Lungs: Clear to auscultation. Cardiovascular: Heart rate was regular. Abdomen: Soft and nontender. Extremities: The left foot is very erythematous, it is draining a serosanguineous fluid. LAB AND X-RAY STUDIES: Both the blood and the culture from the patient's left foot are growing methicillin-resistant Staph aureus. The patient's CBC today shows a white count of 12,490, hemoglobin 10.8, and platelet count 200,000. Creatinine is 1.2. The GFR is 58. ASSESSMENT AND PLAN: Patient has bacteremia pneumonia and foot osteomyelitis. For now I will keep vancomycin going. I have reconsulted Dr. Uribe to see the patient and to see if he thinks anything surgically needs to be done especially as regarding the patient's left foot. COMORBIDITIES: Include he is elderly, he has end-stage renal disease, and peripheral vascular disease. cc: Joe Zarate MD
--- NOTE | 2016-12-01 17:14 | Diag Imaging Result Doc PS360 ---
EXAM: CHEST-PORTABLE - 12/01/2016 HISTORY: pneumonia TECHNIQUE: Portable chest 4:45 PM COMPARISON: 11/26/2016 FINDINGS: Heart size appears upper normal and a bit decreased compared to the previous exam. There is pleural thickening along the lateral lower right chest similar to the previous exam. The underlying right lower lung appears better aerated compared to previous exam, suggesting decreased infiltrate and/or atelectasis. The left lung appears clear. There is no pneumothorax identified. IMPRESSION: Some interval decrease in heart size, which now appears upper range of normal. Stable pleural thickening along the lateral lower right chest. Improved aeration of right lower lung suggesting decreased infiltrate and/or atelectasis. Electronically signed by Jesus Nova 12/01/2016 5:12 PM
[2016-12-01] MEDS: DESYREL PO SCH (21:02)
[2016-12-01] MEDS: SEROQUEL PO SCH (21:02)
[2016-12-01] MEDS: VANCOMYCIN 1,400 MG in NS 250 ML IV SCH (22:12)
[2016-12-02] MEDS: DUONEB (A & A) INH SCH ×4 (04:18→20:01)
[2016-12-02] MEDS: HUMULIN R SUBQ SCH ×4 (06:04→21:21)
[2016-12-02 06:58] LABS: CALCIUM 8.7 mg/dL (8.8-10.2); POTASSIUM 4.4 mmol/L (3.5-5.1)
[2016-12-02] MEDS: PLAVIX PO SCH (08:06)
[2016-12-02] MEDS: IMDUR PO SCH (08:06)
[2016-12-02] MEDS: LOVENOX SUBQ SCH (08:06)
[2016-12-02] MEDS: APRESOLINE PO SCH ×3 (08:06→21:20)
[2016-12-02] MEDS: CORDARONE PO SCH (08:06)
[2016-12-02] MEDS: LINZESS PO SCH (08:06)
[2016-12-02] MEDS: THERA M PLUS PO SCH (08:06)
[2016-12-02] MEDS: GLUCOPHAGE PO SCH ×3 (08:06→17:44)
[2016-12-02] MEDS: LACTULOSE PO SCH ×2 (08:06→21:20)
[2016-12-02] MEDS: FLOMAX PO SCH ×2 (08:06→21:20)
[2016-12-02] MEDS: NON-FORMULARY MED (Arginine/Glutamine/Calcium Hmb [Juven Packet] 1 PACKET) PO SCH ×2 (08:07→21:21)
[2016-12-02] MEDS: LANTUS SUBQ SCH (08:07)
[2016-12-02] MEDS: ZOLOFT PO SCH (08:10)
[2016-12-02] MEDS: NORCO-10 PO PRN ×3 (10:22→22:29)
--- NOTE | 2016-12-02 11:33 | PROGRESS NOTE ---
DATE: 12/02/2016 SUBJECTIVE: The patient is still pleasantly confused talking to his daughter on the phone. His sister has power of senior trial attorney, but his daughter informed me that the patient has a DNR and a Living Will. OBJECTIVE: Vital Signs: Blood pressure 127/42, pulse of 61, respirations 20, temperature 97.5 degrees, saturation 98% on room air. General Appearance: Well-developed, well-nourished, white male in no acute distress. HEENT anicteric. Clear conjunctivae. Neck supple. No JVD. No bruit. Cardiovascular: S1, S2. Normal rate and rhythm. No murmur, rubs, or gallops. Pulmonary: Clear to auscultation bilaterally. GI: Soft, nontender, nondistended. Normoactive bowel sounds. Musculoskeletal: No clubbing, cyanosis, or edema. LABORATORY: Sodium 136, potassium 4.4, chloride 99, bicarb 26. BUN 27. Creatinine 1.2, glucose 143. ASSESSMENT AND PLAN: This is an 81-year-old demented white male, admitted to the hospital for bacteremia. 1. Methicillin-resistant Staphylococcus aureus bacteremia and pneumonia with the patient on vancomycin and Zosyn. With the patient on vancomycin, echocardiogram did not show any vegetation. 2. Toe ulcer cellulitis. Infectious Disease is following. Dr. Zarate consulted Dr. Uribe to see if debridement is needed. The patient is on Zosyn and Vancomycin as well. 3. Benign prostatic hypertrophy. The patient is on Flomax. 4. History of coronary artery disease. Continue Plavix. 5. Depression. Continue Zoloft. 6. Diabetes. Continue sliding scale and Lantus. 7. Deep vein thrombosis prophylaxis. The patient is on Lovenox. 8. CODE STATUS: The patient is DNR. His sister has the [id number].
--- NOTE | 2016-12-02 12:39 | PROGRESS NOTE ---
DATE: 12/02/2016 SUBJECTIVE: Patient denies any significant complaints. No family is at the bedside. He states he was unable to eat much lunch. OBJECTIVE: Vital Signs: Temperature 97.5 degrees, pulse 61, respirations 20, blood pressure 127/42. General Exam: Patient is awake and alert. He is sitting on the side of the bed. He had eaten lunch but did not eat much lunch at all. Patient has some confusion. I am unable to get a full review of systems from him. He is really not complaining of abdominal pain. Cardiovascular: Regular rate and rhythm. Abdomen: Soft, nontender. Positive bowel sounds. ASSESSMENT AND PLAN: 1. Methicillin-resistant Staphylococcus aureus bacteremia and pneumonia following with Infectious Disease. 2. Ulcer cellulitis of lower extremities. Following with Dr. Zarate and Dr. Uribe. 3. Abdominal pain. Poor appetite. Continue PPI. Continue symptomatic treatment. 4. Diarrhea. Stool studies have been ordered but have not being collected. Will watch for those results. GI will be available as needed. I have discussed this case with Dr. García. Dictated by SALLY Shaw for Omi García MD cc: SALLY Tatum MD [facility]
--- NOTE | 2016-12-02 13:43 | OPERATIVE NOTE ---
PROCEDURE DATE: 12/02/2016 PREOPERATIVE DIAGNOSES: 1. Soft tissue infection. 2. Left transmetatarsal amputation. POSTOPERATIVE DIAGNOSES: 1. Soft tissue infection. 2. Left transmetatarsal amputation. 3. Osteomyelitis. PROCEDURE PERFORMED: Debridement of skin and subcutaneous tissue, muscle and tendon remaining left foot. SURGEON: Vanessa Uribe MD. ANESTHESIA: None estimated. ESTIMATED BLOOD LOSS: 25 mL. DRAINS: None. INDICATIONS: Ms. Carlos Alberto Rosales is an 81-year-old, chronically ill, white male with known peripheral vascular disease. He has undergone lower extremity vascular procedures per Dr. Bee. He has had a left transmetatarsal amputation, and he was admitted with cellulitis involving this amputation and purulent drainage from the plantar aspect of the amputation laterally. FINDINGS: His infection went all the way to the bone, lateral aspect, left transmetatarsal amputation. He had thick deng purulence from his wound. PROCEDURE: At the bedside, on the [address] [place] [id number] flanagan, I used forceps and Arevalo scissors to debride this opened plantar ulcer lateral aspect of his left transmetatarsal amputation stump. I debrided skin, subcutaneous tissue, muscle and tendon down to the bone of the amputation site. There was a soft tissue infection with evidence of purulence as I debrided this wound. It was left open and cleansed and redressed with a dry dressing and wrap. I frankly discussed the findings with him at the bedside. He is on IV antibiotics and will probably require further amputation. cc: Vanessa Uribe MD
--- NOTE | 2016-12-02 16:08 | PROGRESS NOTE ---
DATE: 12/02/2016 PRESENT ILLNESS: The patient has a methicillin-resistant Staph aureus bacteremia which originates from the same infection coming from his left foot. MEDICATIONS: The patient is on vancomycin. The patient's blood cultures have been drawn yesterday and the result is still pending. Physical ExaminationVital Signs: Temperature is 97.4 degrees, pulse 57, respirations 16, blood pressure 124/43. General: This is a chronically ill-appearing elderly male. He is in no acute distress. Lungs: Clear to auscultation. Cardiovascular: Regular heart rate. Neurologic: The patient is somewhat lethargic today, he can move his extremities but he is weak. Extremities: The left foot dressing is intact. LAB AND X-RAY: Creatinine 1.2, GFR >60. No CBC drawn for today. No new radiologic study. ASSESSMENT AND PLAN: Dr. Uribe earlier debrided the patient's left foot. The plan now is to continue treatment with vancomycin and make some long-term determination about what to do about the patient's left foot which is still erythematous but it has been debrided and the patient's temperature is down. COMORBIDITIES: Include he is elderly, he has end-stage renal disease and he also has peripheral vascular disease. cc: Joe Zarate MD MTDSarita
[2016-12-02] MEDS: SEROQUEL PO SCH (21:20)
[2016-12-02] MEDS: DESYREL PO SCH (21:20)
[2016-12-03] MEDS: DUONEB (A & A) INH SCH ×4 (03:39→19:49)
[2016-12-03] MEDS: HUMULIN R SUBQ SCH ×4 (06:48→21:33)
[2016-12-03 07:09] LABS: BASO% 0.3 % (0.0-0.8); EOS# 0.31 X1000 (0.0-0.7); EOS% 3.1 % (0.0-10.0); HEMOGLOBIN 10.2 g/dL (14.0-18.0); IMM GRAN# 0.66 X1000 (0.0-0.04); IMM GRAN% 6.5 % (0.0-0.5); LYMPH# 1.27 X1000 (1.2-3.4); LYMPH% 12.5 % (20.5-51.1); MANUAL DIFF NEEDED? YES; MCH 26.6 PG (27-31); MCV 88.5 FL (81-99); MONO# 0.94 X1000 (0.11-0.59); MONO% 9.3 % (1.7-9.3); MPV 10.2 FL (7.4-10.4); NEUT% 68.3 % (42.2-75.2); PLT 222 X1000 (130-400); RBC 3.84 XMIL (4.7-6.1)
[2016-12-03 07:20] LABS: CALCIUM 8.8 mg/dL (8.8-10.2); POTASSIUM 4.8 mmol/L (3.5-5.1)
[2016-12-03 07:49] LABS: BANDS 6 % (0-1); EOS 2 % (1-10); LYMPHS 20 % (21-51); MONO 4 % (1-9)
[2016-12-03] MEDS: LANTUS SUBQ SCH (10:07)
[2016-12-03] MEDS: IMDUR PO SCH (10:08)
[2016-12-03] MEDS: APRESOLINE PO SCH ×3 (10:08→21:32)
[2016-12-03] MEDS: GLUCOPHAGE PO SCH ×3 (10:08→17:38)
[2016-12-03] MEDS: PLAVIX PO SCH (10:08)
[2016-12-03] MEDS: LACTULOSE PO SCH ×2 (10:08→21:31)
[2016-12-03] MEDS: LINZESS PO SCH (10:08)
[2016-12-03] MEDS: NON-FORMULARY MED (Arginine/Glutamine/Calcium Hmb [Juven Packet] 1 PACKET) PO SCH ×2 (10:08→21:30)
[2016-12-03] MEDS: THERA M PLUS PO SCH (10:08)
[2016-12-03] MEDS: CORDARONE PO SCH (10:08)
[2016-12-03] MEDS: FLOMAX PO SCH ×2 (10:08→21:33)
[2016-12-03] MEDS: LOVENOX SUBQ SCH (10:23)
[2016-12-03] MEDS: ZOLOFT PO SCH (10:23)
--- NOTE | 2016-12-03 12:35 | PROGRESS NOTE ---
DATE: 12/03/2016 SUBJECTIVE: The patient is pleasantly demented. OBJECTIVE: Vital Signs: Blood pressure 128/64, pulse of 69, respirations 20, temperature 97.9 degrees, saturation 100% on room air. General Appearance: He appears to be uncomfortable every time he moves his leg, status post I and D of the right foot. HEENT: Anicteric sclerae. Clear conjunctivae. Neck supple. No JVD. No bruit. Cardiovascular: S1, S2. Normal rate and rhythm. No murmur, rubs, or gallops. Pulmonary clear to auscultation bilaterally. GI: Soft, nontender, nondistended. Normoactive bowel sounds. Musculoskeletal: No clubbing, cyanosis, or edema. LABORATORY: White count 10.1, hemoglobin 10.2, hematocrit of 34.0, platelets of 222,000. Chemistry: Sodium 139, potassium 4.8, chloride 99, bicarb 27. BUN 26, creatinine 1.3, glucose of 99. ASSESSMENT AND PLAN: This is an 81-year-old white male, longterm patient, admitted for bacteremia. 1. Methicillin-resistant Staphylococcus aureus bacteremia. It may be secondary to pneumonia and wound on his left foot. Echocardiogram was negative for vegetation. The patient on vancomycin. We will continue with wound care and antibiotics. Infectious Disease is following. General Surgery is following. We will get a low dose of [place] since the patient is not able to ring a diez and ask for pain medication. He appeared to be comfortable. 2. Benign prostatic hypertrophy. Continue Flomax. 3. History of coronary artery disease. Continue Plavix. 4. Depression. Continue Zoloft. 5. Diabetes. Continue Lantus insulin sliding scale insulin. 6. CODE STATUS: The patient is a DNR. 7. Deep vein thrombosis prophylaxis. I will put the patient on Lovenox.
[2016-12-03] MEDS: VANCOMYCIN 1,500 MG in NS 250 ML IV SCH (13:52)
[2016-12-03] MEDS: ZOFRAN PO PRN (13:53)
[2016-12-03] MEDS: NORCO-10 PO SCH (13:56)
--- NOTE | 2016-12-03 15:01 | PROGRESS NOTE ---
DATE: 12/03/2016 Mr. Rosales has osteomyelitis involving his left transmetatarsal amputation stump. He also has known peripheral vascular disease. He does have a palpable dorsalis pedis pulse involving his right foot, but on his left I feel he will require a left lower extremity amputation, probably above the knee. I have discussed this in detail with the patient and his family today at the bedside. They are going to think about how to proceed. In the meantime, will continue wound care and IV antibiotics for this open wound, lateral aspect, left transmetatarsal stump. cc: Vanessa Uribe MD
[2016-12-03] MEDS: DESYREL PO SCH (21:32)
[2016-12-03] MEDS: SEROQUEL PO SCH (21:33)
[2016-12-03] MEDS: NORCO-10 PO PRN (21:33)
[2016-12-04] MEDS: NORCO-10 PO SCH ×4 (01:39→23:54)
[2016-12-04] MEDS: DUONEB (A & A) INH SCH ×4 (03:42→21:35)
[2016-12-04] MEDS: HUMULIN R SUBQ SCH ×4 (06:09→22:19)
[2016-12-04 06:59] LABS: BASO% 0.3 % (0.0-0.8); EOS# 0.39 X1000 (0.0-0.7); EOS% 3.4 % (0.0-10.0); HEMATOCRIT 32.2 % (42.0-52.0); HEMOGLOBIN 10.1 g/dL (14.0-18.0); IMM GRAN% 7.7 % (0.0-0.5); LYMPH% 14.6 % (20.5-51.1); MANUAL DIFF NEEDED? YES; MCH 27.7 PG (27-31); MCHC 31.4 g/dL (33-37); MCV 88.2 FL (81-99); MONO# 1.08 X1000 (0.11-0.59); MONO% 9.3 % (1.7-9.3); MPV 10.1 FL (7.4-10.4); NEUT% 64.7 % (42.2-75.2); PLT 230 X1000 (130-400); RBC 3.65 XMIL (4.7-6.1)
[2016-12-04 07:31] LABS: BANDS 7 % (0-1); EOS 1 % (1-10); LYMPHS 13 % (21-51); MONO 7 % (1-9)
[2016-12-04 07:39] LABS: CALCIUM 8.8 mg/dL (8.8-10.2); POTASSIUM 4.5 mmol/L (3.5-5.1)
--- NOTE | 2016-12-04 09:07 | PROGRESS NOTE ---
DATE: 12/04/2016 SUBJECTIVE: The patient is feeling about the same. He is still complaining of having pain in his foot. No fever. No chills. No nausea, vomiting, or diarrhea. OBJECTIVE: Vital Signs: Blood pressure 119/63, pulse of 66, respirations 20, temperature of 97.5 degrees, saturations of 96% on room air. General Appearance: Thin, white male, in no acute distress. Pleasantly demented. Mild discomfort. HEENT: Anicteric sclerae. Clear conjunctivae. Neck: Supple. No JVD. No bruit. Cardiovascular: S1 and S2. Normal rate and rhythm. No murmur, rubs, or gallops. Pulmonary: Clear to auscultation bilaterally. GI: Soft, nontender, nondistended. Normoactive bowel sounds. Musculoskeletal: His bilateral feet are erythematous, appears to be chronic with a dressing on the right foot. ASSESSMENT AND PLAN: This is an 81-year-old, white male admitted to the hospital for methicillin- resistant Staphylococcus aureus need bacteremia. 1. Methicillin-resistant Staphylococcus aureus bacteremia, may be pneumonia or from the wound. The patient is on vancomycin. Status post wound debridement by Dr. Uribe. The patient is on antibiotics. Infectious disease is following. We will keep the patient on [place] twice a day plus as needed since the patient is still a little demented, asking for any pain medications. We may have to increase it to every 8 hours for better pain control. He appeared to be uncomfortable this morning. 2. Benign prostatic hypertrophy. Continue Flomax. 3. Coronary artery disease. Continue Plavix. 4. Depression. Continue Zoloft. 5. Diabetes. Continue sliding scale insulin. 6. Code status. Patient is a qz-mym-ppxbkbbfyzk. 7. Deep vein thrombosis prophylaxis, Lovenox.
[2016-12-04] MEDS: LACTULOSE PO SCH ×2 (09:15→21:21)
[2016-12-04] MEDS: CORDARONE PO SCH (09:15)
[2016-12-04] MEDS: LINZESS PO SCH (09:15)
[2016-12-04] MEDS: FLOMAX PO SCH ×2 (09:15→21:22)
[2016-12-04] MEDS: ZOLOFT PO SCH (09:16)
[2016-12-04] MEDS: IMDUR PO SCH (09:16)
[2016-12-04] MEDS: THERA M PLUS PO SCH (09:16)
[2016-12-04] MEDS: APRESOLINE PO SCH ×3 (09:16→21:22)
[2016-12-04] MEDS: GLUCOPHAGE PO SCH ×3 (09:16→16:08)
[2016-12-04] MEDS: LANTUS SUBQ SCH (09:16)
[2016-12-04] MEDS: PLAVIX PO SCH (09:16)
[2016-12-04] MEDS: LOVENOX SUBQ SCH (09:17)
[2016-12-04] MEDS: NON-FORMULARY MED (Arginine/Glutamine/Calcium Hmb [Juven Packet] 1 PACKET) PO SCH ×2 (09:17→21:21)
--- NOTE | 2016-12-04 10:26 | PROGRESS NOTE ---
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 I feel that he will need a more proximal amputation. He is in a jail and is non ambulatory and it may be a left ymsjk-ccw-yhtj amputation. PLAN: I discussed this in detail with him and his family yesterday. Dr. Bee returns tomorrow and I will discuss with him his previous revascularization of the left lower extremity. He has had recent vascular surgery involving the right lower extremity with a good palpable dorsalis pedis pulse right foot. cc: Vanessa Uribe MD
[2016-12-04] MEDS: SEROQUEL PO SCH (21:22)
[2016-12-04] MEDS: DESYREL PO SCH (21:23)
[2016-12-04] MEDS: VANCOMYCIN 1,500 MG in NS 250 ML IV SCH (23:54)
[2016-12-05] MEDS: DUONEB (A & A) INH SCH ×4 (03:47→22:35)
[2016-12-05] MEDS: HUMULIN R SUBQ SCH ×3 (06:23→16:41)
[2016-12-05] MEDS: LACTULOSE PO SCH ×2 (08:10→20:56)
[2016-12-05] MEDS: LINZESS PO SCH (08:10)
[2016-12-05] MEDS: FLOMAX PO SCH ×2 (08:11→20:55)
[2016-12-05] MEDS: CORDARONE PO SCH (08:11)
[2016-12-05] MEDS: GLUCOPHAGE PO SCH ×2 (08:11→12:07)
[2016-12-05] MEDS: IMDUR PO SCH (08:11)
[2016-12-05] MEDS: LOVENOX SUBQ SCH (08:11)
[2016-12-05] MEDS: ZOLOFT PO SCH (08:11)
[2016-12-05] MEDS: LANTUS SUBQ SCH (08:11)
[2016-12-05] MEDS: THERA M PLUS PO SCH (08:11)
[2016-12-05] MEDS: PLAVIX PO SCH (08:11)
[2016-12-05] MEDS: APRESOLINE PO SCH ×3 (08:11→21:02)
[2016-12-05] MEDS: NORCO-10 PO SCH ×2 (08:12→15:33)
[2016-12-05] MEDS: NON-FORMULARY MED (Arginine/Glutamine/Calcium Hmb [Juven Packet] 1 PACKET) PO SCH (08:15)
--- NOTE | 2016-12-05 15:16 | PROGRESS NOTE ---
DATE: 12/05/2016 SUBJECTIVE: Patient reports feeling fine. Mild pain in the foot. No fever or chills reported. OBJECTIVE: Vital Signs: Temperature 97.8 degrees, heart rate 70, blood pressure 114/56, O2 saturation 95% on room air. General examination: This is a chronically ill-looking and frail, 81-year-old male, lying in bed, in no acute distress. HEENT: Head is normocephalic, atraumatic. Anicteric sclerae and pale conjunctivae. Mucous membranes dry. Neck: Supple. No JVD noted. No carotid bruits. No lymphadenopathy. No thyromegaly. Cardiovascular: S1, S2 heard. No murmurs, gallops, or rubs. Regular rate and rhythm. Respiratory: Clear bilaterally to auscultation. No work of breathing or using accessory muscles. Abdomen: Soft, nontender to palpation. Bowel sounds present. No organomegaly. Extremities: No clubbing, cyanosis, or edema. Peripheral pulses present in both legs. Bilateral feet are edematous, appears to be chronic, with a dressing on the right foot. Neurological: Patient is alert and oriented x3. Moves 4 extremities. LABORATORY DATA: White cell count 11.62, hemoglobin 10.1, hematocrit 32.2, platelets 230,000. BMP remarkable for BUN 26, creatinine 1.4. ASSESSMENT AND PLAN: 1. Methicillin-resistant Staphylococcus aureus bacteremia. That infection is coming from the right foot. Patient is on vancomycin. Dr. Zarate from infectious disease is following. We are going to continue with the same management. 2. Acute kidney injury. Creatinine is 1.4 and definitely is because of vancomycin and probably dehydration. In this case we will provide IV fluids and we are going to keep checking BMP. Right now we are going to continue with vancomycin unless renal function goes really high. Because the patient was using metformin and this renal dysfunction we will prefer to stop it. 3. Benign prostatic hypertrophy. We will continue with Flomax. 4. Coronary artery disease. Patient is not complaining of any chest pain. We will continue with Plavix. 5. Depression. We will continue with Zoloft. 6. Diabetes mellitus type 2. We will continue with sliding scale insulin. We are going to hold metformin because of the renal function. 7. Code status. Patient is DNR. 8. Deep vein thrombosis prophylaxis with Lovenox. cc: Zac Roque MD
[2016-12-05] MEDS: ZOFRAN PO PRN (16:41)
--- NOTE | 2016-12-05 17:25 | PROGRESS NOTE ---
DATE: 12/05/2016 Mr. Rosales's cellulitis involving his left transmetatarsal stump has improved but he still has an open wound to the bone on the lateral aspect plantar surface of his left transmetatarsal amputation. He will require I feel further amputation and I have discussed this with him on several occasions and he still has not decided to let need me proceed. We will continue wound care and IV antibiotics. He states that he is going to talk to his family about any further surgery. cc: Vanessa Uribe MD
[2016-12-05] MEDS: CUBICIN (FOR INPATIENT USE) 400 MG in NS 100 ML IV SCH (20:52)
[2016-12-05] MEDS: DESYREL PO SCH (20:56)
[2016-12-05] MEDS: SEROQUEL PO SCH (20:56)
--- NOTE | 2016-12-05 21:13 | PROGRESS NOTE ---
DATE: 12/05/2016 PRESENT ILLNESS: The patient has a methicillin-resistant Staph aureus infection of his left foot which has resulted in a methicillin-resistant Staph aureus bacteremia. MEDICATIONS: The patient is on vancomycin. This is day 4 since the patient's blood cultures were drawn. The blood cultures are negative. Therefore this is day 4 of treatment with antibiotics which we start with the patient's first blood cultures to revert to negative. PHYSICAL EXAMINATION: Vital Signs: Temperature is 97.8 degrees, pulse 72, respirations 17, blood pressure 114/56. General: This is a chronically ill-appearing, elderly male who is in no acute distress. Lungs: Clear to auscultation. Cardiovascular: Regular heart rate. Abdomen: Soft and nontender. Extremities: The left foot is less swollen and erythematous. There is a dressing on the foot and the dressing is intact. LAB AND X-RAY: The patient's creatinine has been increasing gradually, today it is up to 1.4 with a GFR of 48. Repeat blood cultures drawn 4 days ago are negative. Culture prior to that from the patient's left foot and blood grew methicillin-resistant Staph aureus. ASSESSMENT AND PLAN: Since the creatinine is going up I am going to discontinue it and placed the patient on daptomycin. This will be day 4 of treatment for both of his infections. Dr. Uribe is going to be talking to the patient and his family about further surgery on the patient's left foot. COMORBIDITIES: He is elderly, he has end-stage renal disease and he also has peripheral vascular disease. cc: Joe Zarate MD
[2016-12-06] MEDS: NORCO-10 PO SCH ×4 (01:19→23:54)
[2016-12-06] MEDS: NON-FORMULARY MED (Arginine/Glutamine/Calcium Hmb [Juven Packet] 1 PACKET) PO SCH ×3 (01:20→22:34)
[2016-12-06] MEDS: HUMULIN R SUBQ SCH ×5 (03:39→22:33)
[2016-12-06] MEDS: DUONEB (A & A) INH SCH ×4 (04:29→22:48)
[2016-12-06] MEDS ORDERED: INSULIN PEN NEEDLES ONE (07:06)
[2016-12-06] MEDS: IMDUR PO SCH (10:38)
[2016-12-06] MEDS: PLAVIX PO SCH (10:38)
[2016-12-06] MEDS: THERA M PLUS PO SCH (10:38)
[2016-12-06] MEDS: FLOMAX PO SCH ×2 (10:38→21:50)
[2016-12-06] MEDS: LINZESS PO SCH (10:38)
[2016-12-06] MEDS: CORDARONE PO SCH (10:38)
[2016-12-06] MEDS: ZOLOFT PO SCH (10:38)
[2016-12-06] MEDS: APRESOLINE PO SCH ×3 (10:38→21:40)
[2016-12-06] MEDS: LANTUS SUBQ SCH (10:39)
[2016-12-06] MEDS: LOVENOX SUBQ SCH (10:39)
[2016-12-06] MEDS: LACTULOSE PO SCH ×2 (10:39→22:34)
[2016-12-06 15:48] LABS: BASO% 0.4 % (0.0-0.8); EOS# 0.31 X1000 (0.0-0.7); EOS% 2.4 % (0.0-10.0); HEMATOCRIT 31.3 % (42.0-52.0); HEMOGLOBIN 9.7 g/dL (14.0-18.0); IMM GRAN% 6.1 % (0.0-0.5); LYMPH# 1.73 X1000 (1.2-3.4); LYMPH% 13.2 % (20.5-51.1); MANUAL DIFF NEEDED? YES; MCH 27.6 PG (27-31); MCV 88.9 FL (81-99); MONO# 0.74 X1000 (0.11-0.59); MONO% 5.7 % (1.7-9.3); NEUT% 72.2 % (42.2-75.2); PLT 280 X1000 (130-400); RBC 3.52 XMIL (4.7-6.1)
--- NOTE | 2016-12-06 15:51 | PROGRESS NOTE ---
DATE: 12/06/2016 SUBJECTIVE: Patient reports feeling fine with mild pain in the right foot. No fever or chills reported. No acute issues noted by nursing staff overnight. OBJECTIVE: Vital Signs: Temperature 97.7 degrees, heart rate 61, respiratory rate 16, blood pressure 123/49, O2 saturation 98% on room air. General examination: This is a chronically ill- looking and frail, 81-year-old, male, lying in bed, in no acute distress. HEENT: Head is normocephalic, atraumatic. Mucous membranes dry. Neck: Supple. No JVD noted. No carotid bruits. No lymphadenopathy. Cardiovascular: S1, S2 heard. No murmurs, gallops, or rubs. Regular rate and rhythm. Respiratory: Clear bilaterally to auscultation. No work of breathing or using accessory muscles. Abdomen: Soft, nontender to palpation. Bowel sounds present. No organomegaly. Extremities: No clubbing, cyanosis, or edema. Bilateral feet are erythematosus, appears to be chronic edema with dressing on the right foot. Neurological: Patient alert and oriented x3. Moves 4 extremities. LABORATORY DATA: Reviewed. ASSESSMENT AND PLAN: 1. MRSA bacteremia. 2. Cellulitis involving the left metatarsal stump. 3. Acute kidney injury. 4. Benign prostatic hypertrophy. 5. Coronary artery disease. 6. Depression. 7. Diabetes mellitus type 2. PLAN: The patient is getting treatment for MRSA bacteremia with daptomycin and that was switched from vancomycin because of renal dysfunction. Dr. Zarate from Infectious Disease is following this patient. For acute kidney injury we have not checked a BMP today. Labs are still pending at the time of the dictation. For cellulitis of the metatarsal stump, Dr. Uribe is following this patient but unfortunately patient is supposed to talk with the family to make a decision about to go for surgery or not. We have talked with the patient who has dementia and we are going to talk with nzltv-ns-[id number] about what decision is more convenient for him. In any case, if this patient's family declined for surgery we can set up IV antibiotics for the time that Dr. Zarate considers and the patient can be discharged home. For benign prostatic hypertrophy we will continue with Flomax. For coronary artery disease patient is not experiencing any chest pain. We will continue with the same home medications that includes beta blockers and lisinopril. For depression will continue with Zoloft. For diabetes mellitus, we will continue with the sliding scale insulin. Metformin has been held because of renal dysfunction yesterday. Code status: Patient is DNR. cc: Zac Roque MD
[2016-12-06 15:53] LABS: CALCIUM 8.5 mg/dL (8.8-10.2)
[2016-12-06 16:29] LABS: EOS 1 % (1-10); LYMPHS 10 % (21-51); MONO 11 % (1-9)
--- NOTE | 2016-12-06 16:33 | PROGRESS NOTE ---
DATE: 12/06/2016 Carlos Alberto Rosales is an 81-year-old white male who has an infected left transmetatarsal amputation, with an open wound laterally that goes to the bone. He also has severe peripheral vascular disease and has undergone revascularization procedures in both lower extremities. He has been on IV antibiotics for the last week. Cellulitis involving the left transmetatarsal amputation has improved but he still has this chronic open wound to the bone. I have discussed with his caregiver and power of orthopedically impaired teacher Elaine amputation. It would probably require an kglay-fkc-azah amputation on the left to have good enough blood flow to heal the wound. She is anxious to proceed. The patient has also accepted amputation. We will plan to do this tomorrow in surgery approximately 11 o'clock a.m. cc: Vanessa Uribe MD
[2016-12-06] MEDS: CUBICIN (FOR INPATIENT USE) 400 MG in NS 100 ML IV SCH (18:32)
[2016-12-06] MEDS: DESYREL PO SCH (21:40)
[2016-12-06] MEDS: SEROQUEL PO SCH (21:50)
[2016-12-07] MEDS: DUONEB (A & A) INH SCH ×4 (03:05→20:55)
[2016-12-07 06:47] LABS: BASO% 0.2 % (0.0-0.8); EOS# 0.53 X1000 (0.0-0.7); EOS% 3.8 % (0.0-10.0); HEMATOCRIT 32.4 % (42.0-52.0); HEMOGLOBIN 10.2 g/dL (14.0-18.0); IMM GRAN# 0.96 X1000 (0.0-0.04); IMM GRAN% 6.9 % (0.0-0.5); LYMPH# 1.74 X1000 (1.2-3.4); LYMPH% 12.4 % (20.5-51.1); MANUAL DIFF NEEDED? YES; MCH 27.6 PG (27-31); MCHC 31.5 g/dL (33-37); MCV 87.8 FL (81-99); MONO# 0.82 X1000 (0.11-0.59); MONO% 5.9 % (1.7-9.3); MPV 9.9 FL (7.4-10.4); NEUT% 70.8 % (42.2-75.2); PLT 268 X1000 (130-400); RBC 3.69 XMIL (4.7-6.1)
[2016-12-07 06:52] LABS: CALCIUM 8.9 mg/dL (8.8-10.2); POTASSIUM 3.9 mmol/L (3.5-5.1)
[2016-12-07 07:22] LABS: EOS 4 % (1-10); LYMPHS 24 % (21-51); MONO 6 % (1-9)
[2016-12-07] MEDS: HUMULIN R SUBQ SCH ×3 (10:04→17:46)
[2016-12-07] MEDS: LOVENOX SUBQ SCH (10:05)
[2016-12-07] MEDS: APRESOLINE PO SCH ×3 (10:12→19:58)
[2016-12-07] MEDS: NON-FORMULARY MED (Arginine/Glutamine/Calcium Hmb [Juven Packet] 1 PACKET) PO SCH ×2 (10:12→20:10)
[2016-12-07] MEDS: NORCO-10 PO SCH (10:12)
[2016-12-07] MEDS: FLOMAX PO SCH ×2 (10:13→19:57)
[2016-12-07] MEDS: CORDARONE PO SCH (10:13)
[2016-12-07] MEDS: THERA M PLUS PO SCH (10:13)
[2016-12-07] MEDS: ZOLOFT PO SCH (10:13)
[2016-12-07] MEDS: IMDUR PO SCH (10:13)
[2016-12-07] MEDS: PLAVIX PO SCH (10:14)
[2016-12-07] MEDS: LINZESS PO SCH (10:14)
[2016-12-07] MEDS: LANTUS SUBQ SCH (10:14)
[2016-12-07] MEDS: LACTULOSE PO SCH (10:15)
[2016-12-07] MEDS: DILAUDID IV PRN ×4 (10:52→22:52)
[2016-12-07] MEDS ORDERED: XYLOCAINE-MPF 2% ONE (11:18)
[2016-12-07] MEDS ORDERED: ROBINUL ONE ×2 (11:51→12:09)
[2016-12-07] MEDS ORDERED: SENSORCAINE 0.25%/EPI 1:200,000 ONE (11:57)
[2016-12-07] MEDS ORDERED: DECADRON ONE (12:09)
[2016-12-07] MEDS ORDERED: ZOFRAN ONE (12:09)
[2016-12-07] MEDS: MORPHINE ONE ×2 (13:33→13:40)
[2016-12-07] MEDS ORDERED: DIPRIVAN 1% ONE (13:36)
--- NOTE | 2016-12-07 13:39 | OPERATIVE NOTE ---
PROCEDURE DATE: 12/07/2016 PREOPERATIVE DIAGNOSIS: Infection and osteomyelitis, left transmetatarsal amputation. POSTOPERATIVE DIAGNOSIS: Infection and osteomyelitis, left transmetatarsal amputation. PRINCIPAL PROCEDURE: Left jeqmv-twm-owsf amputation. SURGEON: Vanessa Uribe MD. ANESTHESIA: General in addition to local anesthetic. ESTIMATED BLOOD LOSS: 100 mL. DRAINS: None. INDICATIONS: Mr. Carlos Alberto Rosales is an 81-year-old white male who has undergone bilateral lower extremity peripheral vascular surgery per Dr. Bee. He has undergone a left in situ arterial bypass graft which was still functioning. He also has undergone endovascular interventions in his right lower extremity and, on his right foot, he has a palpable dorsalis pedis pulse. However, he has developed osteomyelitis and infection involving his left transmetatarsal stump. We felt we could not clear this infection without further amputation and have decided on a left above-the- knee amputation. FINDINGS: It seemed like he had good enough blood flow for healing above the knee. We identified the sciatic nerve and took it high in our wound to prevent chronic pain. He had an in situ graft which was still functional, and we ligated this graft. DESCRIPTION OF PROCEDURE: The patient was brought to the operating room, placed supine, received general anesthesia and was ventilated. He already had a Gibson catheter tube in place. He was already on IV Cubicin, and his left lower extremity was prepped and draped within a sterile field. I marked a fish[place] incision for our jrphf-yza-svrv amputation using the skin marker. Our incision began 4 fingerbreadths above the top of the knee. Once I marked our fishmouth incision, I made the incision with a 10 blade scalpel through the skin and subcutaneous tissue. As we encountered bleeding, we used the cautery or hemostats and 3-0 and 2-0 silk ties. We came across the in situ graft and suture ligated it with a 2-0 silk stitch. Once we had circumferentially incised the skin and the subcutaneous tissue to the muscle layers. We then started transecting the muscle layers using the cautery. As we came to the femur, we cut the femur with a power saw and then used an amputation knife to complete our amputation by cutting the posterior muscle compartments. We used Vilma clamps and hemostats to control any bleeding, and we used 3-0 and 2-0 silk ties. We identified the sciatic nerve and made sure that we took it high in the amputation site. We used a rasp to smooth the cut end of the femur and then we thoroughly irrigated the wound. We used interrupted 0 Vicryl stitches to close the deep muscles over the cut end of the femur with interrupted 0 Vicryl stitches and then we brought the superficial fascia from anterior and posterior compartments together to close our wound again with interrupted 0 Vicryl stitches. We closed the skin with a skin clip nail assembly machine operator and dressings were applied. He tolerated the procedure well with plans for him to go to the recovery room and then return to the floor. cc: Vanessa Uribe MD
[2016-12-07] MEDS ORDERED: MORPHINE ONE (13:51)
[2016-12-07] MEDS: NORCO-10 PO PRN (14:37)
[2016-12-07] MEDS ORDERED: LR 1,000 ML ONE (15:15)
--- NOTE | 2016-12-07 15:33 | PROGRESS NOTE ---
DATE: 12/07/2016 SUBJECTIVE: Patient reports feeling fine. Reports going back from surgery and complaining of pain in the left stump. OBJECTIVE: Vital Signs: Temperature 98 degrees, heart rate 60, respiratory rate 16, blood pressure 133/54, O2 saturation 100% on room air. General Examination: This is an 81-year-old male lying in bed in no acute distress. HEENT: Head is normocephalic , atraumatic. Anicteric sclerae and pale conjunctivae. Mucous membranes moist. Neck: Supple. No JVD noted. No carotid bruits. No lymphadenopathy. No thyromegaly. Cardiovascular: S1, S2 heard. No murmurs, gallops, or rubs. Regular rate and rhythm. Respiratory: Clear bilaterally to auscultation. No work of breathing or using accessory muscles. Abdomen: Soft , nontender to palpation. Bowel sounds present. No organomegaly. Extremities: No clubbing, cyanosis, or edema. Peripheral pulses present. There is a left aqzyl-mza-nsyq amputation. Neurological: Patient alert and oriented x3. Able to move 4 extremities. LABORATORY DATA: Reviewed. ASSESSMENT AND PLAN: 1. Methicillin-resistant Staphylococcus aureus bacteremia. 2. Status post left limfg-uer-wpxy amputation. 3. Acute kidney injury. 4. Benign prostatic hypertrophy. 5. Coronary artery disease. 6. Depression. 7. Diabetes mellitus type 2. 8. Patient has been taken to the OR today to have left bhlvw-zvr-rfeq amputation for this MRSA bacteremia that is being treated now with daptomycin. Dr. Zarate from Infectious Disease is following this patient. I think for now that he does not have any of this infected tissue, patient will start recovering quickly. In any case, we prefer to continue with the same antibiotic therapy. 9. For acute kidney injury, the creatinine is unchanged. We will continue hydration and checking BMP daily. 10. For benign prostatic hypertrophy. Patient is on Flomax. 11. For coronary artery disease, patient is not experiencing any chest pain. cc: Zac Roque MD [facility]
--- NOTE | 2016-12-07 16:37 | PROGRESS NOTE ---
DATE: 12/07/2016 PRESENT ILLNESS: The patient is status post left firkc-cay-kywe amputation for a methicillin- resistant Staph aureus infection of the left foot with resulting methicillin-resistant Staph aureus bacteremia. MEDICATIONS: This is day 5 of treatment with daptomycin. PHYSICAL EXAMINATION: Vital Signs: Temperature is 98 degrees, pulse 64, respirations 17, blood pressure 130/60. Generally: This is a chronically ill-appearing, elderly male who is in no acute distress. He does seem to have some pain however at the left csawl-gai-iual amputation site. Lungs: Clear to auscultation. Cardiovascular: Heart rate was irregular. Abdomen: Soft and nontender. Extremities: There is a large dressing around the left leg. The dressing is intact. LAB AND X-RAY: There is no new x-ray. The lab for today [place] [address], hemoglobin 10.2, and platelet count 268,000. Creatinine is 1.4. GFR is 48. ASSESSMENT AND PLAN: The patient is status post left lqcsv-hfw-vcqx amputation. My plan is to continue daptomycin for another few days until we are fairly certain that the incision is going to heal well. COMORBIDITIES: Include he is elderly. He has end-stage renal disease, and peripheral vascular disease. cc: Joe Zarate MD
[2016-12-07] MEDS: PERCOCET-5 PO SCH (17:43)
[2016-12-07] MEDS: CUBICIN (FOR INPATIENT USE) 400 MG in NS 100 ML IV SCH (19:53)
[2016-12-07] MEDS: DESYREL PO SCH (19:57)
[2016-12-07] MEDS: SEROQUEL PO SCH (19:58)
[2016-12-08] MEDS: SEROQUEL PO SCH ×2 (00:20→20:38)
[2016-12-08] MEDS: HUMULIN R SUBQ SCH ×5 (00:21→20:38)
[2016-12-08] MEDS: LACTULOSE PO SCH ×2 (00:21→11:07)
[2016-12-08] MEDS: FLOMAX PO SCH ×3 (00:22→20:38)
[2016-12-08] MEDS: DESYREL PO SCH ×2 (00:22→20:38)
[2016-12-08] MEDS: CUBICIN (FOR INPATIENT USE) 400 MG in NS 100 ML IV SCH ×2 (00:23→20:43)
[2016-12-08] MEDS: APRESOLINE PO SCH ×4 (00:23→20:38)
[2016-12-08] MEDS: DILAUDID IV PRN ×7 (00:23→20:45)
[2016-12-08] MEDS: DUONEB (A & A) INH SCH ×4 (03:57→21:00)
[2016-12-08 06:57] LABS: BASO% 0.1 % (0.0-0.8); EOS# 0.01 X1000 (0.0-0.7); HEMATOCRIT 27.1 % (42.0-52.0); HEMOGLOBIN 8.4 g/dL (14.0-18.0); IMM GRAN# 0.53 X1000 (0.0-0.04); IMM GRAN% 2.3 % (0.0-0.5); LYMPH# 1.05 X1000 (1.2-3.4); LYMPH% 4.5 % (20.5-51.1); MANUAL DIFF NEEDED? YES; MCH 27.4 PG (27-31); MCV 88.3 FL (81-99); MONO# 1.67 X1000 (0.11-0.59); MONO% 7.2 % (1.7-9.3); MPV 9.8 FL (7.4-10.4); NEUT% 85.9 % (42.2-75.2); PLT 285 X1000 (130-400); RBC 3.07 XMIL (4.7-6.1)
[2016-12-08 07:08] LABS: CALCIUM 8.6 mg/dL (8.8-10.2); POTASSIUM 4.9 mmol/L (3.5-5.1)
[2016-12-08 07:38] LABS: BANDS 4 % (0-1); LYMPHS 10 % (21-51); MONO 2 % (1-9)
[2016-12-08] MEDS: PERCOCET-5 PO SCH ×3 (11:06→20:42)
[2016-12-08] MEDS: LANTUS SUBQ SCH (11:07)
[2016-12-08] MEDS: IMDUR PO SCH (11:07)
[2016-12-08] MEDS: LINZESS PO SCH (11:07)
[2016-12-08] MEDS: ZOLOFT PO SCH (11:07)
[2016-12-08] MEDS: THERA M PLUS PO SCH (11:07)
[2016-12-08] MEDS: CORDARONE PO SCH (11:08)
[2016-12-08] MEDS: LOVENOX SUBQ SCH (11:08)
[2016-12-08] MEDS: PLAVIX PO SCH (11:08)
[2016-12-08] MEDS: NON-FORMULARY MED (Arginine/Glutamine/Calcium Hmb [Juven Packet] 1 PACKET) PO SCH ×2 (11:09→20:42)
--- NOTE | 2016-12-08 16:13 | PROGRESS NOTE ---
DATE: 12/08/2016 SUBJECTIVE: Mr. Rosales is now postop day 1 from a left qhzrw-txw-hfwm amputation. There has been some bleeding from his cbpck-udg-almb amputation stump and I changed the dressing while in the room today. He is having some pain from his surgery and requiring IV pain medicine. He is not eating well but is awake and cooperative. OBJECTIVE: His heart rate is 72, blood pressure 143/94. Hematocrit is 27%. His O2 saturation is 96%. He has no work of breathing. He has a Gibson catheter tube in place. His BUN and creatinine are 33 and 1.3. His white blood cell count has increased to 23. He was Cubicin for antibiotics. PLAN: We will continue pain control with IV Dilaudid and [place] 10 as needed. We need to encourage p.o. intake and start physical therapy in several days. cc: Vanessa Uribe MD
--- NOTE | 2016-12-08 19:21 | PROGRESS NOTE ---
DATE: 12/08/2016 SUBJECTIVE: Patient has no focal complaints. He is sleeping. OBJECTIVE: Vital signs: Blood pressure 125/75, heart rate 74, respiratory rate 17, temperature 100. Cardiovascular: Regular rate and rhythm. Pulmonary: Bilateral breath sounds. Clear to auscultation. GI: Soft, nontender, nondistended. Bowel sounds are positive. LABORATORY DATA: White count 23, hemoglobin and hematocrit of 8 and 27. Platelets 285,000. Chemistries look okay. Creatinine is 1.3. PROBLEM LIST: 1. Methicillin-resistant Staphylococcus aureus bacteremia. Repeat blood cultures have been negative. He is on daptomycin. Daptomycin is day 4. I am going to repeat his blood cultures just because he has got a temperature. 2. Status post amputation of his left leg, above-knee amputation. Surgery is following. We will continue to monitor. 3. Acute kidney injury. Has recovered. We will continue to monitor. Reportedly continue hydration, but he is not eating and drinking very well. We will continue fluids and follow closely. 4. Coronary artery disease appears to be stable. 5. Disposition. We are going to kind of see how the patient does. He may end up needing rehab of some sort. He is a Do Not Resuscitate based on previous conversations. 6. Diabetes appears to be fairly well controlled. We will continue to monitor. cc: Allen Frazier MD
[2016-12-08] MEDS: NS 1,000 ML IV SCH (20:41)
[2016-12-09] MEDS: DILAUDID IV PRN ×5 (01:00→14:37)
[2016-12-09] MEDS: DUONEB (A & A) INH SCH ×4 (03:42→21:10)
[2016-12-09] MEDS: HUMULIN R SUBQ SCH ×4 (06:42→21:41)
[2016-12-09] MEDS: NS 1,000 ML IV SCH ×2 (06:59→08:40)
[2016-12-09 07:04] LABS: BASO% 0.1 % (0.0-0.8); HEMOGLOBIN 8.1 g/dL (14.0-18.0); IMM GRAN# 0.44 X1000 (0.0-0.04); IMM GRAN% 1.6 % (0.0-0.5); LYMPH# 1.51 X1000 (1.2-3.4); LYMPH% 5.5 % (20.5-51.1); MANUAL DIFF NEEDED? YES; MCH 27.7 PG (27-31); MCHC 31.2 g/dL (33-37); MONO% 5.1 % (1.7-9.3); MPV 10.1 FL (7.4-10.4); NEUT% 87.7 % (42.2-75.2); PLT 277 X1000 (130-400); RBC 2.92 XMIL (4.7-6.1)
[2016-12-09 07:29] LABS: CALCIUM 8.6 mg/dL (8.8-10.2); POTASSIUM 4.1 mmol/L (3.5-5.1)
[2016-12-09 07:32] LABS: BANDS 4 % (0-1); LYMPHS 4 % (21-51)
[2016-12-09] MEDS: PLAVIX PO SCH (08:39)
[2016-12-09] MEDS: LOVENOX SUBQ SCH (08:39)
[2016-12-09] MEDS: THERA M PLUS PO SCH (08:39)
[2016-12-09] MEDS: LINZESS PO SCH (08:39)
[2016-12-09] MEDS: FLOMAX PO SCH ×2 (08:39→21:40)
[2016-12-09] MEDS: CORDARONE PO SCH (08:39)
[2016-12-09] MEDS: IMDUR PO SCH (08:39)
[2016-12-09] MEDS: APRESOLINE PO SCH ×3 (08:39→21:39)
[2016-12-09] MEDS: ZOLOFT PO SCH (08:40)
[2016-12-09] MEDS: LANTUS SUBQ SCH (08:40)
[2016-12-09] MEDS: NON-FORMULARY MED (Arginine/Glutamine/Calcium Hmb [Juven Packet] 1 PACKET) PO SCH ×2 (08:41→21:41)
[2016-12-09] MEDS: PERCOCET-5 PO SCH ×3 (08:51→17:00)
--- NOTE | 2016-12-09 10:05 | Diag Imaging Result Doc PS360 ---
EXAM: CHEST-PORTABLE HISTORY: rising wbc TECHNIQUE: Semiupright portable AP COMPARISON: 12/01/2016 FINDINGS: There are increased interstitial markings in the lower right lung and there is also small right sided pleural effusion or pleural thickening. Heart is mildly enlarged. The upper lungs remain clear. No left effusion identified. There is been prior surgery to the lower right neck. IMPRESSION: No interval improvement. Electronically signed by Yassine Pruitt 12/09/2016 10:03 AM
--- NOTE | 2016-12-09 13:53 | PROGRESS NOTE ---
DATE: 12/09/2016 SUBJECTIVE: Mr. Rosales is now postop day two from a left epdcd-zhg-xghl amputation. He is an 81- year-old male. He is a little disoriented; I think it is from pain medicine. He is not eating well. His white blood cell count was 27, his hematocrit is 26%. His electrolytes: His BUN is 39, creatinine 1.6. His heart rate is 71, blood pressure 109/39, O2 saturation 95%. He does have a Gibson catheter tube in place. Urine output seems to be adequate. Because he is not eating well, we will continue IV fluids (they are at 75 mL an hour). We need to watch his hematocrit. His pain appears to be better under control. Chest x-ray shows some increased interstitial markings right lower lobe. Dr. Yunier Dent is on for us this weekend. cc: Vanessa Uribe MD
[2016-12-09] MEDS: CLINIMIX E 4.25%-5% SOLUTION 1,000 ML IV SCH (14:52)
--- NOTE | 2016-12-09 14:53 | PROGRESS NOTE ---
DATE: 12/09/2016 SUBJECTIVE: The patient has no focal complaints. OBJECTIVE: Vital Signs: Blood pressure 109/39, heart rate 71, respiratory rate 16, temperature 99.1 degrees, satting 95% on room air. Cardiovascular: Regular rate and rhythm. Pulmonary: Bilateral breath sounds. Clear to auscultation. GI: Soft, nontender, nondistended. Bowel sounds were positive. Extremity exam: No clubbing or cyanosis. Lymphatic exam: No nursing. LABORATORY DATA: White count has jumped up to 27,000. Hemoglobin and hematocrit 8 and 26, platelets 277. PROBLEM LIST: 1. Staphylococcus bacteremia related to a complicated infection of his left leg. Repeat blood cultures are negative. He is on daptomycin day 5. Repeat blood cultures are clear thus far, but he still has persistent leukocytosis which I do not have a clear reason for. We are checking a chest x-ray and urinalysis, and we will monitor. 2. Left leg mpvsz-arn-vari amputation. Dr. Uribe is monitoring. This appears to be stable. 3. Acute kidney injury. He appears to be doing okay. However, he is not really eating and drinking. We will continue intravenous nutrition, and I am going to start some supplements, some appetite stimulants. 4. Disposition: I think he is probably going to need some sort of long-term care, but we will follow. 5. Severe protein-calorie malnutrition. Again Clinimix, Glucerna and Periactin, and we will follow. cc: Allen Frazier MD
--- NOTE | 2016-12-09 15:43 | PROGRESS NOTE ---
DATE: 12/09/2016 PRESENT ILLNESS: The patient is status post left sqcmf-ula-ecfk amputation for a methicillin- resistant Staph aureus infection of the left foot with an associated methicillin -resistant Staph aureus. MEDICATION: The patient has been receiving daptomycin now for 7 days. PHYSICAL EXAMINATION: Vital Signs: Temperature is 97.6 degrees, pulse 66, respirations 16, blood pressure 132/52. General: This is an ill-appearing, elderly male. He is in no acute distress. Lungs: Clear to auscultation. Cardiovascular: Heart rate today sounded regular. There were a couple instances when it was irregular. Abdomen: Soft and nontender. Extremities: There is a large dressing around the left leg. The dressing is intact. Neurologic: Patient is arousable. He talks and can move his extremities. LAB AND X-RAY: Chest x-ray shows no acute changes. The patient's CBC shows continued elevation of the white count. Today it is 27,460, hemoglobin 8.1, and platelet count 277, 000. Creatinine is 1.6. The GFR is 41. ASSESSMENT AND PLAN: The patient has methicillin-resistant Staph aureus bacteremia and the patient is status post an qitjk-tfm-vpkv amputation for a methicillin-resistant Staph aureus septic knee arthritis. The patient's comorbidities are that he is elderly, he has end-stage renal disease, and peripheral vascular disease. cc: Joe Zarate MD [facility]TDD
[2016-12-09] MEDS: PERIACTIN PO SCH (17:03)
[2016-12-09 18:47] LABS: URINE SOURCE CATH
[2016-12-09 18:54] LABS: BILIRUBIN URINE NEGATIVE (NEGATIVE); BLOOD URINE MODERATE (NEGATIVE); COLOR YELLOW; GLUCOSE URINE NEGATIVE (NEGATIVE); LEUKOCYTES URINE LARGE (NEGATIVE); NITRITE URINE NEGATIVE (NEGATIVE); PH URINE 5.5; PROTEIN URINE 70 mg/dL (NEGATIVE); SP GRAVITY URINE 1.021; TURBIDITY URINE HAZY (CLEAR); UROBILINOGEN URINE NORMAL (NORMAL)
[2016-12-09 19:00] LABS: UR EPITHELIAL CELLS <10 /HPF (<10); URINE BACTERIA 1+ /HPF; URINE CULTURE NEEDED? YES; URINE MICRO REVIEW NEEDED? YES; URINE RBC TNTC /HPF (<10); URINE WBC TNTC /HPF (<10)
[2016-12-09] MEDS: CUBICIN (FOR INPATIENT USE) 400 MG in NS 100 ML IV SCH (21:40)
[2016-12-09] MEDS: SEROQUEL PO SCH (21:41)
[2016-12-09] MEDS: DESYREL PO SCH (21:41)
[2016-12-10] MEDS: DILAUDID IV PRN ×5 (00:15→18:34)
[2016-12-10] MEDS: DUONEB (A & A) INH SCH ×4 (03:51→19:43)
[2016-12-10 06:53] LABS: BASO% 0.1 % (0.0-0.8); EOS# 0.02 X1000 (0.0-0.7); EOS% 0.1 % (0.0-10.0); HEMATOCRIT 25.7 % (42.0-52.0); IMM GRAN# 1.09 X1000 (0.0-0.04); IMM GRAN% 4.6 % (0.0-0.5); LYMPH# 1.18 X1000 (1.2-3.4); LYMPH% 4.9 % (20.5-51.1); MANUAL DIFF NEEDED? YES; MCH 27.7 PG (27-31); MCHC 31.1 g/dL (33-37); MCV 88.9 FL (81-99); MONO# 1.01 X1000 (0.11-0.59); MONO% 4.2 % (1.7-9.3); MPV 10.1 FL (7.4-10.4); NEUT% 86.1 % (42.2-75.2); PLT 278 X1000 (130-400); RBC 2.89 XMIL (4.7-6.1)
[2016-12-10] MEDS: PERIACTIN PO SCH ×3 (06:55→16:44)
[2016-12-10] MEDS: HUMULIN R SUBQ SCH ×4 (06:55→20:46)
[2016-12-10 07:07] LABS: CALCIUM 8.7 mg/dL (8.8-10.2); POTASSIUM 4.3 mmol/L (3.5-5.1)
[2016-12-10 07:48] LABS: BANDS 2 % (0-1); LYMPHS 8 % (21-51)
--- NOTE | 2016-12-10 07:48 | PROGRESS NOTE ---
DATE: 12/10/2016 SUBJECTIVE: No events. Some pain in his left amputation site. OBJECTIVE: No fevers. Pulse 72, blood pressure 169/55. He is resting, but arousable this morning. The left above-knee amputation site is clean, dry, and intact, with no cellulitis. Flap was viable. White count is down to 23, hematocrit 25, creatinine is 1.4. ASSESSMENT AND PLAN: This is an 81-year-old male, status post left above-knee amputation. Continue to monitor his wound, but defer the other medical management per the Hospitalist service. We will continue to follow along. cc: Charlie Dent MD
[2016-12-10] MEDS ORDERED: INSULIN PEN NEEDLES ONE (07:51)
[2016-12-10] MEDS: IMDUR PO SCH (10:14)
[2016-12-10] MEDS: APRESOLINE PO SCH ×3 (10:14→20:43)
[2016-12-10] MEDS: LINZESS PO SCH (10:14)
[2016-12-10] MEDS: FLOMAX PO SCH ×2 (10:14→20:43)
[2016-12-10] MEDS: ZOLOFT PO SCH (10:14)
[2016-12-10] MEDS: CORDARONE PO SCH (10:15)
[2016-12-10] MEDS: PERCOCET-5 PO SCH ×3 (10:15→16:44)
[2016-12-10] MEDS: THERA M PLUS PO SCH (10:15)
[2016-12-10] MEDS: LANTUS SUBQ SCH (10:16)
[2016-12-10] MEDS: PLAVIX PO SCH (10:16)
[2016-12-10] MEDS: LOVENOX SUBQ SCH (10:16)
[2016-12-10] MEDS: NON-FORMULARY MED (Arginine/Glutamine/Calcium Hmb [Juven Packet] 1 PACKET) PO SCH ×2 (10:18→20:43)
[2016-12-10] MEDS: CLINIMIX E 4.25%-5% SOLUTION 1,000 ML IV SCH (10:18)
[2016-12-10] MEDS: ROCEPHIN 1 GM/NS 1 GM/50 ML IVPB IV SCH (11:08)
--- NOTE | 2016-12-10 15:47 | PROGRESS NOTE ---
DATE: 12/09/2016 SUBJECTIVE: Patient looks a little bit more alert, oriented. No focal complaints. Still having some memory issues. OBJECTIVE: Vital signs: Blood pressure 139/44, heart rate 67, respiratory 16, temperature 97.6 degrees, 98% on 2 L. Cardiovascular: Regular rate and rhythm. Pulmonary: Bilateral breath sounds. Clear to auscultation. GI: Soft, nontender, nondistended. Bowel sounds are positive. Extremities: No clubbing or cyanosis. Lymphatics: No peripheral edema. Neurological: Nonfocal. LABORATORY DATA: White count of 23, hemoglobin and hematocrit 8 and 25, platelets of 278,000. Chemistries, BUN and creatinine of 44 and 1.4. PROBLEM LIST: 1. Staphylococcus bacteremia associated with a complicated infection of his left leg was status post amputation. He is on daptomycin day 6. Blood cultures are still negative. 2. Left yextn-mzb-erqt amputation. Continue surgical treatment per Dr. Uribe. 3. Acute kidney injury. He appears to have stabilized. He is stage 2 chronic renal failure at this point. 4. Severe protein-calorie malnutrition. We are on Clinimix, Periactin, nutritional supplements. 5. Possible urinary tract infection. He has had a rising leukocytosis. We have added Rocephin and follow up on urine culture. DISPOSITION: I imagine he will need long-term care. I am not sure where he initially came from, he is resident [facility] so he will go back there when he stabilized. cc: Allen Frazier MD
[2016-12-10] MEDS: SEROQUEL PO SCH (20:43)
[2016-12-10] MEDS: DESYREL PO SCH (20:43)
[2016-12-10] MEDS: CUBICIN (FOR INPATIENT USE) 400 MG in NS 100 ML IV SCH (22:00)
[2016-12-11] MEDS: CLINIMIX E 4.25%-5% SOLUTION 1,000 ML IV SCH ×2 (00:11→15:21)
[2016-12-11] MEDS: DUONEB (A & A) INH SCH ×4 (03:40→19:36)
[2016-12-11] MEDS: PERIACTIN PO SCH ×3 (06:13→18:05)
[2016-12-11] MEDS: HUMULIN R SUBQ SCH ×4 (06:13→21:37)
[2016-12-11] MEDS: DILAUDID IV PRN ×2 (06:19→11:57)
[2016-12-11 07:34] LABS: BASO% 0.2 % (0.0-0.8); EOS# 0.06 X1000 (0.0-0.7); EOS% 0.4 % (0.0-10.0); HEMATOCRIT 27.9 % (42.0-52.0); HEMOGLOBIN 8.6 g/dL (14.0-18.0); IMM GRAN# 1.03 X1000 (0.0-0.04); IMM GRAN% 6.1 % (0.0-0.5); LYMPH# 0.94 X1000 (1.2-3.4); LYMPH% 5.6 % (20.5-51.1); MANUAL DIFF NEEDED? YES; MCHC 30.8 g/dL (33-37); MCV 87.5 FL (81-99); MONO# 0.68 X1000 (0.11-0.59); NEUT% 83.7 % (42.2-75.2); PLT 292 X1000 (130-400); RBC 3.19 XMIL (4.7-6.1)
[2016-12-11 07:39] LABS: MAGNESIUM 1.8 mg/dL (1.5-2.7)
[2016-12-11 07:43] LABS: AGAP 12; BUN 40 mg/dL (8-22); CALCIUM 8.9 mg/dL (8.8-10.2); CHLORIDE 103 mmol/L (98-107); COSMO 293; POTASSIUM 4.2 mmol/L (3.5-5.1); SODIUM 138 mmol/L (136-145); TCO2 23 mmol/L (25-35)
[2016-12-11 08:50] LABS: BANDS 2 % (0-1); HYPOCHROM 1+; LYMPHS 12 % (21-51); MONO 2 % (1-9)
[2016-12-11] MEDS: PLAVIX PO SCH (09:21)
[2016-12-11] MEDS: LINZESS PO SCH (09:21)
[2016-12-11] MEDS: PERCOCET-5 PO SCH ×2 (09:21→12:07)
[2016-12-11] MEDS: CORDARONE PO SCH (09:21)
[2016-12-11] MEDS: APRESOLINE PO SCH ×3 (09:21→21:36)
[2016-12-11] MEDS: THERA M PLUS PO SCH (09:21)
[2016-12-11] MEDS: ZOLOFT PO SCH (09:21)
[2016-12-11] MEDS: FLOMAX PO SCH ×2 (09:21→21:36)
[2016-12-11] MEDS: IMDUR PO SCH (09:21)
[2016-12-11] MEDS: NON-FORMULARY MED (Arginine/Glutamine/Calcium Hmb [Juven Packet] 1 PACKET) PO SCH ×2 (09:22→21:36)
[2016-12-11] MEDS: LANTUS SUBQ SCH (09:22)
[2016-12-11] MEDS: LOVENOX SUBQ SCH (09:22)
[2016-12-11] MEDS: ROCEPHIN 1 GM/NS 1 GM/50 ML IVPB IV SCH (12:05)
[2016-12-11] MEDS: MARINOL PO SCH (18:05)
[2016-12-11] MEDS: MORPHINE IV PRN (18:07)
--- NOTE | 2016-12-11 18:56 | PROGRESS NOTE ---
DATE: 12/11/2016 SUBJECTIVE: The patient has no focal complaints. OBJECTIVE: Vital Signs: Blood pressure 185/77, heart rate of 82, respiratory rate is 16, temperature 97.6 degrees, 97% on room air. Cardiovascular: Regular rate and rhythm. Pulmonary: Bilateral breath sounds. Clear to auscultation. Gastrointestinal: Abdomen was soft, nontender, nondistended. Bowel sounds are positive. Extremities: His left leg wound looks clean, dry, and intact. He has a lot of ecchymoses. LABORATORY DATA: Sugars up to 231. BUN and creatinine of 40 and 1. White count down to 16,000. Hemoglobin and hematocrit 8 and 27. PROBLEM LIST: 1. Staphylococcus bacteremia, methicillin resistant staph aureus. He is on daptomycin day 7. Blood cultures continue to be negative. Dr. Zarate is following. 2. Left above the knee amputation. Appears to be doing well. We will continue PT. Dr. Uribe is following. 3. Acute kidney injury. Appears to have stabilized. 4. Urinary tract infection. Urine cultures growing gram-negative anahi. He is on Rocephin and white count seems to be improving. 5. Encephalopathy. Patient's family feels he is sedated and confused. He does have dementia, but seemingly a little worse than usual. We will dial back on his pain medications. I do think he is in pain, but we will try to get by with as little as possible and again we explained this may be related to urinary tract infection. 6. Severe protein-calorie malnutrition. He is on CliniMix and Periactin, but still eating very little. DISPOSITION: He will go back to [facility] when stabilized. We will continue to monitor. cc: Allen Frazier MD
[2016-12-11] MEDS: DESYREL PO SCH (21:36)
[2016-12-11] MEDS: CUBICIN (FOR INPATIENT USE) 400 MG in NS 100 ML IV SCH (21:36)
[2016-12-11] MEDS: SEROQUEL PO SCH (21:36)
[2016-12-12] MEDS: CLINIMIX E 4.25%-5% SOLUTION 1,000 ML IV SCH ×2 (03:29→18:32)
[2016-12-12] MEDS: DUONEB (A & A) INH SCH ×4 (03:34→21:25)
[2016-12-12] MEDS: HUMULIN R SUBQ SCH ×3 (06:17→16:09)
[2016-12-12] MEDS: PERIACTIN PO SCH ×3 (06:18→16:11)
[2016-12-12 07:15] LABS: BASO% 0.1 % (0.0-0.8); EOS# 0.01 X1000 (0.0-0.7); HEMOGLOBIN 9.1 g/dL (14.0-18.0); IMM GRAN% 2.9 % (0.0-0.5); LYMPH# 1.56 X1000 (1.2-3.4); LYMPH% 7.4 % (20.5-51.1); MANUAL DIFF NEEDED? YES; MCHC 31.4 g/dL (33-37); MCV 86.1 FL (81-99); MONO# 1.16 X1000 (0.11-0.59); MONO% 5.5 % (1.7-9.3); MPV 10.3 FL (7.4-10.4); NEUT% 84.1 % (42.2-75.2); PLT 304 X1000 (130-400); RBC 3.37 XMIL (4.7-6.1)
[2016-12-12 07:40] LABS: AGAP 12; BUN 36 mg/dL (8-22); CALCIUM 8.8 mg/dL (8.8-10.2); CHLORIDE 103 mmol/L (98-107); COSMO 292; POTASSIUM 4.1 mmol/L (3.5-5.1); SODIUM 139 mmol/L (136-145); TCO2 24 mmol/L (25-35)
--- NOTE | 2016-12-12 08:12 | PROGRESS NOTE ---
DATE: 12/12/2016 SUBJECTIVE: Mr. Rosales is status post left above the knee amputation. Seems to be resting comfortably this morning. His left isbsj-cbq-fzkd amputation stump is intact and there is no significant drainage from it. OBJECTIVE: His heart rate is 92, blood pressure 147/82, O2 saturation 98%. He has a Gibson catheter tube in place. He is afebrile on Cubicin. His white blood cell count is 21. Hematocrit is 29%. He is not eating well and he is generally debilitated. PLAN: We need to try to encourage as much p.o. intake as possible. Begin to use physical therapy and supportive care. His electrolytes are within normal limits. BUN 36, creatinine 1. cc: Vanessa Uribe MD
[2016-12-12 08:27] LABS: HYPOCHROM 2+; LYMPHS 4 % (21-51); MONO 2 % (1-9)
[2016-12-12] MEDS: PLAVIX PO SCH (08:36)
[2016-12-12] MEDS: LINZESS PO SCH (08:36)
[2016-12-12] MEDS: THERA M PLUS PO SCH (08:36)
[2016-12-12] MEDS: ZOLOFT PO SCH (08:36)
[2016-12-12] MEDS: CORDARONE PO SCH (08:36)
[2016-12-12] MEDS: FLOMAX PO SCH ×2 (08:36→20:51)
[2016-12-12] MEDS: LANTUS SUBQ SCH (08:36)
[2016-12-12] MEDS: APRESOLINE PO SCH ×3 (08:36→20:51)
[2016-12-12] MEDS: IMDUR PO SCH (08:36)
[2016-12-12] MEDS: MARINOL PO SCH (08:36)
[2016-12-12] MEDS: LOVENOX SUBQ SCH (08:37)
[2016-12-12] MEDS: NON-FORMULARY MED (Arginine/Glutamine/Calcium Hmb [Juven Packet] 1 PACKET) PO SCH ×2 (08:37→20:51)
[2016-12-12] MEDS: ROCEPHIN 1 GM/NS 1 GM/50 ML IVPB IV SCH (11:31)
--- NOTE | 2016-12-12 15:21 | PROGRESS NOTE ---
DATE: 12/12/2016 SUBJECTIVE: Patient has no focal complaints but is still confused. He says he feels like he is down and he cannot walk anymore. Granted he cannot walk because he has a AKA. OBJECTIVE: Vital signs: Blood pressure 151/46, heart rate 74, respiratory rate 18, temperature 97.6 degrees. 96% on room air. Cardiovascular: Regular rate and rhythm. Pulmonary: Bilateral breath sounds. Clear to auscultation. GI: Soft, nontender, nondistended. Bowel sounds are positive. LABORATORY DATA: BUN and creatinine of 36 and 1, white count of 20.9, hemoglobin and hematocrit 9 and 29, platelets of 304,000. PROBLEM LIST: 1. Staphylococcus bacteremia. He is on daptomycin date 8. Dr. Zarate is following. 2. Left above-knee amputation. Continue PT, pain control, Dr. Uribe is following. 3. Pseudomonas urinary tract infection. Rocephin will not be effective. We are going to change to cefepime, that hopefully will help with his mental status. 4. Encephalopathy. Will continue to monitor. Again his urinary tract infection really has not been treated appropriately because we have not had the sensitivities yet so hopefully this will help remedy his white count and his mental status. 5. Severe protein-calorie malnutrition. Continue Clinimix, Periactin and follow. DISPOSITION: Planning for rehab versus possible LTAC. We will continue to monitor. cc: Allen Frazier MD
[2016-12-12] MEDS: MORPHINE IV PRN (15:57)
[2016-12-12] MEDS: MAXIPIME 1 GM/NS 1 GM/50 ML IVPB IV SCH (16:04)
[2016-12-12] MEDS: PERCOCET-5 PO PRN (17:10)
--- NOTE | 2016-12-12 17:55 | PROGRESS NOTE ---
DATE: 12/12/2016 PRESENT ILLNESS: The patient is status post left ggfsv-ukj-xodx amputation for methicillin- resistant Staphylococcus aureus of the left foot with an associated methicillin-resistant Staphylococcus aureus bacteremia. MEDICATIONS: The patient is on a combination of daptomycin and cefepime. This is day 8 of treatment. PHYSICAL EXAMINATION: Vital Signs: Temperature is 98.3 degrees, pulse 70, respirations 17, blood pressure is 123/48. General: This is an ill-appearing elderly male. He is in no acute distress. Cardiovascular: Heart rate is regular. Lungs: Clear to auscultation. Abdomen: Soft and nontender. Extremities: I examined the patient's left leg. The incision is intact. There is no erythema or drainage coming from the leg. LABORATORY AND X-RAY: Chest x-ray shows increased interstitial markings in the right lower lobe. Urine is growing Pseudomonas. The white count is 20,990, hemoglobin 9.1, and platelet count 304,000. Creatinine is 1. GFR is greater than 60. ASSESSMENT AND PLAN: The patient is status post ltcov-kkd-zdiy amputation. He has leukocytosis. He has a Pseudomonas urinary tract infection, which should be well treated by the cefepime the patient already is receiving. My plan is to continue with his current antibiotics and go ahead now and repeat and get blood cultures, a urinalysis, and urine culture and a portable chest x-ray. COMORBIDITIES: Include being elderly, end-stage renal disease, and peripheral vascular disease. cc: Joe Zarate MD
[2016-12-12] MEDS: DESYREL PO SCH (20:51)
[2016-12-12] MEDS: SEROQUEL PO SCH (20:51)
[2016-12-12] MEDS: CUBICIN (FOR INPATIENT USE) 400 MG in NS 100 ML IV SCH (20:59)
[2016-12-13] MEDS: MAXIPIME 1 GM/NS 1 GM/50 ML IVPB IV SCH ×2 (02:10→14:57)
[2016-12-13] MEDS: HUMULIN R SUBQ SCH ×5 (02:11→21:21)
[2016-12-13 03:15] LABS: URINE CULTURE NEEDED? NO; URINE MICRO REVIEW NEEDED? NO; URINE SOURCE CATH
[2016-12-13 03:19] LABS: BILIRUBIN URINE NEGATIVE (NEGATIVE); BLOOD URINE NEGATIVE (NEGATIVE); COLOR YELLOW; GLUCOSE URINE NEGATIVE (NEGATIVE); LEUKOCYTES URINE NEGATIVE (NEGATIVE); NITRITE URINE NEGATIVE (NEGATIVE); PROTEIN URINE TRACE mg/dL (NEGATIVE); SP GRAVITY URINE 1.011; TURBIDITY URINE CLEAR (CLEAR); UROBILINOGEN URINE NORMAL (NORMAL)
[2016-12-13 03:21] LABS: UR EPITHELIAL CELLS <10 /HPF (<10); URINE BACTERIA NEGATIVE /HPF; URINE RBC <10 /HPF (<10); URINE WBC <10 /HPF (<10)
[2016-12-13] MEDS: DUONEB (A & A) INH SCH ×4 (04:00→22:05)
[2016-12-13] MEDS: PERIACTIN PO SCH ×3 (06:04→15:56)
--- NOTE | 2016-12-13 07:49 | Diag Imaging Result Doc PS360 ---
CHEST-1 VIEW - 12/12/2016 INDICATION: pneumonia TECHNIQUE: COMPARISON: 12/09/2016 FINDINGS: There is cardiomegaly stable from prior. Stable infiltrate or scarring, with pleural effusion or thickening at the right lung base. The left lung base is grossly clear. Stable COPD changes. IMPRESSION: No change from prior. Electronically signed by Steven Carranza 12/13/2016 7:47 AM
[2016-12-13 07:50] LABS: MANUAL DIFF NEEDED? NO
[2016-12-13 08:03] LABS: BASO% 0.4 % (0.0-0.8); EOS% 1.9 % (0.0-10.0); HEMATOCRIT 31.3 % (42.0-52.0); HEMOGLOBIN 9.8 g/dL (14.0-18.0); IMM GRAN# 0.45 X1000 (0.0-0.04); IMM GRAN% 2.8 % (0.0-0.5); LYMPH# 1.62 X1000 (1.2-3.4); LYMPH% 10.2 % (20.5-51.1); MCH 27.8 PG (27-31); MCHC 31.3 g/dL (33-37); MCV 88.9 FL (81-99); MONO% 6.3 % (1.7-9.3); MPV 11.2 FL (7.4-10.4); NEUT% 78.4 % (42.2-75.2); PLT 254 X1000 (130-400); RBC 3.52 XMIL (4.7-6.1)
[2016-12-13 08:14] LABS: AGAP 14; BUN 39 mg/dL (8-22); CALCIUM 9.1 mg/dL (8.8-10.2); CHLORIDE 103 mmol/L (98-107); COSMO 294; POTASSIUM 4.3 mmol/L (3.5-5.1); SODIUM 140 mmol/L (136-145); TCO2 23 mmol/L (25-35)
[2016-12-13] MEDS: MORPHINE IV PRN (08:14)
[2016-12-13] MEDS: LANTUS SUBQ SCH (09:11)
[2016-12-13] MEDS: LOVENOX SUBQ SCH (09:12)
[2016-12-13] MEDS: THERA M PLUS PO SCH (09:12)
[2016-12-13] MEDS: APRESOLINE PO SCH ×3 (09:12→21:20)
[2016-12-13] MEDS: CORDARONE PO SCH (09:12)
[2016-12-13] MEDS: ZOLOFT PO SCH (09:13)
[2016-12-13] MEDS: PLAVIX PO SCH (09:13)
[2016-12-13] MEDS: MARINOL PO SCH (09:13)
[2016-12-13] MEDS: IMDUR PO SCH (09:13)
[2016-12-13] MEDS: LINZESS PO SCH (09:13)
[2016-12-13] MEDS: FLOMAX PO SCH ×2 (09:14→21:20)
[2016-12-13] MEDS: PERCOCET-5 PO PRN ×2 (09:14→14:58)
[2016-12-13] MEDS: NON-FORMULARY MED (Arginine/Glutamine/Calcium Hmb [Juven Packet] 1 PACKET) PO SCH ×2 (09:22→21:30)
[2016-12-13] MEDS: CLINIMIX E 4.25%-5% SOLUTION 1,000 ML IV SCH (11:10)
--- NOTE | 2016-12-13 13:58 | PROGRESS NOTE ---
DATE: 12/13/2016 Today Mr. Rosales refers to be doing a little better. Denies any pain in the legs. OBJECTIVELY: Vitals: Blood pressure is 92/46, pulse of 69, respiration is 22, temperature is 97.6 degrees. General: Mr. Rosales is an 81-year-old male. He is in bed, no distress. HEENT: Mucosa is pink and moist. Anicteric and acyanotic. Neck: Supple. Chest: Good air entry bilateral. Abdomen: Soft. Extremities: There is a left AKA. Sutures are in place and the wound line looks clean. The right lower extremity has sparsity of hair distribution and almost imperceptible distal pulse. LABORATORY DATA: WBC is 15.88, hemoglobin is 9.8, platelet count of 254,000. Chemistries reviewed. Completely unremarkable. Glucose is 197. Review of the microbiology data: Patient had staph bacteremia with staph aureus infection in the foot on presentation. This was on 11/29/2016. Subsequent blood cultures have been negative. A urine culture was also positive for Pseudomonas aeruginosa. There has been a repeat blood culture since yesterday. So far the prelim is negative. ASSESSMENT: 1. MRSA bacteremia. Patient is on daptomycin, being followed by Dr. Zarate. 2. 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 3. Pseudomonal aeruginosa infection. 4. Altered mental status secondary to toxic metabolic encephalopathy. This is resolved. 5. Severe protein calorie malnutrition. 6. Diabetes mellitus controlled. 7. Severe peripheral vascular disease. The patient is on anti-platelet agent. We will add atorvastatin for lipid control. Of note, patient is also on daptomycin the combination of which can increase the CK and so will be monitoring this very closely. cc: Guero Palomares MD
[2016-12-13] MEDS: SEROQUEL PO SCH (21:20)
[2016-12-13] MEDS: LIPITOR PO SCH (21:20)
[2016-12-13] MEDS: CUBICIN (FOR INPATIENT USE) 400 MG in NS 100 ML IV SCH (21:21)
[2016-12-13] MEDS: DESYREL PO SCH (21:21)
[2016-12-14] MEDS: CLINIMIX E 4.25%-5% SOLUTION 1,000 ML IV SCH ×3 (00:51→15:21)
[2016-12-14] MEDS: MAXIPIME 1 GM/NS 1 GM/50 ML IVPB IV SCH ×2 (00:56→14:34)
[2016-12-14] MEDS: DUONEB (A & A) INH SCH ×4 (04:11→21:25)
[2016-12-14] MEDS: HUMULIN R SUBQ SCH ×4 (06:00→21:55)
[2016-12-14] MEDS: PERIACTIN PO SCH ×3 (06:00→17:42)
[2016-12-14 06:57] LABS: BASO% 0.2 % (0.0-0.8); EOS# 0.41 X1000 (0.0-0.7); EOS% 2.8 % (0.0-10.0); HEMATOCRIT 29.8 % (42.0-52.0); HEMOGLOBIN 9.1 g/dL (14.0-18.0); IMM GRAN# 0.69 X1000 (0.0-0.04); IMM GRAN% 4.8 % (0.0-0.5); LYMPH# 2.03 X1000 (1.2-3.4); MANUAL DIFF NEEDED? YES; MCH 26.8 PG (27-31); MCHC 30.5 g/dL (33-37); MCV 87.6 FL (81-99); MONO# 1.06 X1000 (0.11-0.59); MONO% 7.3 % (1.7-9.3); MPV 10.5 FL (7.4-10.4); NEUT% 70.9 % (42.2-75.2); PLT 298 X1000 (130-400)
[2016-12-14 07:44] LABS: CALCIUM 8.7 mg/dL (8.8-10.2); POTASSIUM 5.1 mmol/L (3.5-5.1)
[2016-12-14] MEDS: PERCOCET-5 PO PRN ×2 (07:53→14:34)
[2016-12-14 08:27] LABS: EOS 6 % (1-10); LYMPHS 16 % (21-51); MONO 12 % (1-9)
[2016-12-14] MEDS: LANTUS SUBQ SCH (08:58)
[2016-12-14] MEDS: IMDUR PO SCH (08:59)
[2016-12-14] MEDS: LOVENOX SUBQ SCH (08:59)
[2016-12-14] MEDS: CORDARONE PO SCH (09:00)
[2016-12-14] MEDS: APRESOLINE PO SCH ×3 (09:00→21:55)
[2016-12-14] MEDS: ZOLOFT PO SCH (09:00)
[2016-12-14] MEDS: PLAVIX PO SCH (09:00)
[2016-12-14] MEDS: FLOMAX PO SCH ×2 (09:00→21:55)
[2016-12-14] MEDS: MARINOL PO SCH (09:00)
[2016-12-14] MEDS: LINZESS PO SCH (09:00)
[2016-12-14] MEDS: THERA M PLUS PO SCH (09:00)
[2016-12-14] MEDS: NON-FORMULARY MED (Arginine/Glutamine/Calcium Hmb [Juven Packet] 1 PACKET) PO SCH ×2 (09:07→21:54)
[2016-12-14] MEDS: SANTYL OINT TOP SCH (11:11)
--- NOTE | 2016-12-14 14:24 | PROGRESS NOTE ---
DATE: 12/14/2016 PRESENT ILLNESS: The patient has a methicillin-resistant Staph aureus bacteremia originating from the patient's left leg. The patient is post left ziffu-alj-pxxy amputation. The patient also has a Pseudomonas urinary tract infection. MEDICATIONS: This is day 9 of treatment with a combination of daptomycin and cefepime. PHYSICAL EXAMINATION: Vital Signs: Temperature is 98.2 degrees, pulse 65, respirations 18, blood pressure 138/49. Generally: This is a chronically ill-appearing, elderly male. He is in no acute distress. Lungs: Clear to auscultation. Cardiovascular: Heart rate is regular. Abdomen: Soft and nontender. Extremities: The patient's left leg incision is intact. There is no erythema and no drainage coming from the leg. LABORATORY AND X-RAY: The patient's CBC today shows a white count of 14,510, hemoglobin 9.1, and platelet count 298,000. Creatinine is 1.2. The GFR is 58. Repeat blood cultures are sterile. Urine culture grew Pseudomonas. There is no new radiographic study today. ASSESSMENT AND PLAN: 1. The patient has bacteremia originating from infection of the left leg and also the patient has a urinary tract infection. The plan is to continue daptomycin in a dose of 400 mg IV daily and cefepime for a dose of 1 g IV every 12 hours for 5 more days. I have requested that a PICC be placed. Furthermore, I have ordered that once the antibiotics are done that the PICC should be removed. Also, I have ordered that a CBC, creatinine and CPK should be drawn every Monday x5 days also. 2. Comorbidities: He is elderly. He has peripheral vascular disease. He has end-stage renal disease and he is malnourished. cc: Joe Zarate MD
[2016-12-14 15:17] LABS: INR 1.05; PROTIME 11.1 Seconds (9.2-11.7)
--- NOTE | 2016-12-14 17:22 | PROGRESS NOTE ---
DATE: 12/14/2016 SUBJECTIVE: Today Mr. Rosales refers to be doing a lot better. Just waiting for adequate placement. OBJECTIVE: Vital signs: Blood pressure is 149/59, pulse 65, respirations 18, temperature is degrees 98.4. General: Mr. Rosales is an 81-year-old male. He is in bed, does not seems to be in any remarkable distress. HEENT: Mucosa is pink and moist. Anicteric and acyanotic. Neck: Supple. Chest: Clear. Cardiovascular: Regular rate and rhythm. Abdomen: Soft. Extremities: There is a left above-knee amputation, sutures in place, with the line clean. The right lower extremity has paucity of hair distribution almost imperceptible distal pulse. ASSISTANT SOFTBALL COACH: Patient is alert and oriented. There is no focal neurological deficit. LABORATORY DATA: WBC is 14.51, hemoglobin is 9.1, platelet count of 298,000. Chemistries reviewed. Completely unremarkable. Patient medications have been reviewed. ASSESSMENT: 1. Methicillin-resistant Staphylococcus aureus bacteremia. Patient continues to be on daptomycin. 2. Left leg osteomyelitis, status post left above-knee amputation. 3. Pseudomonal aeruginosa urinary tract infection. 4. Altered mental status secondary to toxic metabolic encephalopathy. This is improved. 5. Severe protein calorie malnutrition. Patient continues on IV 1 Clinimix and continues tolerating some oral feedings. 6. Diabetes mellitus, controlled. 7. Peripheral vascular disease. Patient is on antiplatelet and on statin. PLAN: In general Mr. Rosales continues to be stable. I discussed the case with Dr. Zarate today on antibiotic choice and he thinks any time the patient is ready from a medical standpoint, he can be discharged. Patient continues to be needing IV antibiotics at least for 2 weeks. He is also remarkably weak, so he will need adequate rehabilitation and wound care for the above-knee amputation and will also need adequate nutritional support. When taking all these four elements into consideration, I think the patient would benefit from going to an LTAC instead of going to just the rehab. We will be reconsult social work to get LTAC to re-evaluate the patient for acceptance into an LTAC program. cc: Guero Palomares MD
[2016-12-14] MEDS: LIPITOR PO SCH (21:55)
[2016-12-14] MEDS: SEROQUEL PO SCH (21:55)
[2016-12-14] MEDS: DESYREL PO SCH (21:55)
[2016-12-14] MEDS: CUBICIN (FOR INPATIENT USE) 400 MG in NS 100 ML IV SCH (21:55)
[2016-12-15] MEDS: MAXIPIME 1 GM/NS 1 GM/50 ML IVPB IV SCH ×2 (01:33→14:19)
[2016-12-15] MEDS: DUONEB (A & A) INH SCH ×2 (03:25→09:29)
[2016-12-15] MEDS: PERCOCET-5 PO PRN (03:38)
[2016-12-15] MEDS: CLINIMIX E 4.25%-5% SOLUTION 1,000 ML IV SCH (04:25)
[2016-12-15] MEDS: PERIACTIN PO SCH ×3 (07:05→16:22)
[2016-12-15] MEDS: HUMULIN R SUBQ SCH ×3 (07:05→16:19)
[2016-12-15] MEDS: NON-FORMULARY MED (Arginine/Glutamine/Calcium Hmb [Juven Packet] 1 PACKET) PO SCH (08:12)
[2016-12-15] MEDS: LINZESS PO SCH (08:12)
[2016-12-15] MEDS: APRESOLINE PO SCH ×2 (08:12→14:20)
[2016-12-15] MEDS: FLOMAX PO SCH (08:13)
[2016-12-15] MEDS: ZOLOFT PO SCH (08:13)
[2016-12-15] MEDS: LANTUS SUBQ SCH (08:13)
[2016-12-15] MEDS: IMDUR PO SCH (08:13)
[2016-12-15] MEDS: MARINOL PO SCH (08:13)
[2016-12-15] MEDS: PLAVIX PO SCH (08:13)
[2016-12-15] MEDS: THERA M PLUS PO SCH (08:13)
[2016-12-15] MEDS: CORDARONE PO SCH (08:13)
[2016-12-15] MEDS: LOVENOX SUBQ SCH (08:13)
[2016-12-15] MEDS: SANTYL OINT TOP SCH (08:14)
[2016-12-15] MEDS ORDERED: NS 100 ML ONE (09:18)
[2016-12-15] MEDS: MORPHINE IV PRN (10:21)
--- NOTE | 2016-12-15 11:30 | PROGRESS NOTE ---
DATE: 12/15/2016 Mr. Rosales's left uhufm-vtb-mfph amputation is healing well with clips. Those clips will need to stay 2-3 more weeks. He says his pain is improving. His right foot has a palpable dorsalis pedis pulse. cc: Vanessa Uribe MD
--- NOTE | 2016-12-15 12:56 | Diag Imaging Result Doc PS360 ---
CHEST-PORTABLE - 12/15/2016 INDICATION: Verify PICC placement TECHNIQUE: COMPARISON: 12/12/2016 FINDINGS: There is a new right PICC line in good position with the tip at the cavoatrial junction. Stable volume loss of the right lung with multifocal infiltrate at the right lung base and some pleural thickening. No new or focal infiltrates otherwise. Heart size remains borderline enlarged. IMPRESSION: Good right PICC line placement. Otherwise no change from prior. Electronically signed by Steven Carranza 12/15/2016 12:53 PM
[2016-12-15 14:20] VITALS: BP 117/61
--- NOTE | 2016-12-15 14:21 | PROGRESS NOTE ---
DATE: 12/15/2016 SUBJECTIVE: Today Mr. Rosales refers to be doing a lot better. Does not have any acute medical complaints, just waiting for adequate disposition. We have been informed that the patient is qualified and has been accepted to go to an LTAC. As we said, yesterday he is going for wound care, antibiotic therapy and also physical rehabilitation. OBJECTIVE: Vital Signs: Blood pressure is 148/65, pulse of 62, respiration rate 18, and temperature 98.1 degrees. Patient is saturating 98% on room air. General exam: Mr. Rosales is an 81-year-old male. He is in bed. He is not in any distress. HEENT: Mucosa is pink and moist. Anicteric. Acyanotic. Neck: Supple. Chest: Clear. Cardiovascular: Regular rate and rhythm. Abdomen: Soft. Extremities: Left AKA sutures are in place and the suture line is clean. The right lower extremity has paucity of hair, and there is decrease in the pulse. CHARTER REPRESENTATIVE: Patient is awake and alert and oriented. LABORATORY DATA: None for today. The patient's glucose is 243. ASSESSMENT: 1. Methicillin-resistant Staphylococcus aureus bacteremia. Patient is currently on daptomycin and he is going to continue this for 2 weeks. The patient had a negative blood culture on 12/12/2016, which will be the time we start to count. So end of therapy will be 12/26/2016. 2. 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 3. Pseudomonal aeruginosa urinary tract infection. Patient was on cefepime, and I think he has completed a course of that. 4. Altered mental status due toxic metabolic encephalopathy, improved. 5. Severe protein calorie malnutrition. Patient continues to be on Clinimix. His enteral intake is gradually improving. 6. Diabetes mellitus. We will continue with his metformin and insulin. 7. Peripheral vascular disease. Patient is on anti-platelet therapy and also statin drugs. PLAN: So, in general I think Mr. Rosales is clinically stable. He is going to be discharged to an LTAC to continue with antibiotic therapy, wound care, physical rehabilitation and nutritional support. He will follow up with Dr. Uribe and also with Dr. Zarate. Please refer to the details of the discharge summary in the chart. cc: Guero Palomares MD
--- NOTE | 2016-12-15 16:00 | DISCHARGE SUMMARY ---
ADMISSION DATE: 11/26/2016 DISCHARGE DATE: 12/15/2016 ADMISSION DIAGNOSES: 1. Healthcare-associated pneumonia of the right mid and lower lung. 2. Diabetes mellitus type 2. 3. History of coronary artery disease. 4. Dementia. 5. Chronic obstructive pulmonary disease exacerbation. 6. Chronic abdominal pain. 7. Left foot abscess and cellulitis of the left transmetatarsal amputation. DISCHARGE DIAGNOSES: 1. Do not resuscitate level 1. 2. Methicillin-resistant Staphylococcus aureus bacteremia. Will be continued on daptomycin. 3. Left leg osteomyelitis now status post left wjodg-cqu-dexx amputation. 4. Catheter-associated urinary tract infection with Pseudomonas aeruginosa. Continue with cefepime. 5. Toxic metabolic encephalopathy on top of dementia which is improved. 6. Severe protein calorie malnutrition. He tolerates some oral food. He has been on intravenous parental nutrition with Clinimix and on Marinol. 7. Diabetes mellitus type 2, controlled. 8. Peripheral vascular disease on statin and Plavix. 9. Hypertension, stable on hydralazine with systolic primarily 140s. 10. Insomnia on trazodone. 11. Depression on Zoloft. 12. Benign prostatic hyperplasia on Flomax. 13. Acute kidney injury, resolved, stabilized chronic kidney disease stage II. 14. History of coronary artery disease. 15. Chronic obstructive pulmonary disease exacerbation is resolved. 16. Right lateral ankle wound with wound care dressing changes. CONSULTATIONS: 1. Dr. García. 2. Dr. Zarate. 3. Dr. Uribe. 4. Wound Care. SURGERIES AND PROCEDURES: 1. On 12/02/[address] Uribe: Debridement of skin and subcutaneous tissue muscle and tension remaining of the left foot. Procedure performed at bedside with no complications. 2. On 12/07/[address] Uribe: Left above the knee amputation with 25 mL blood loss and no complications noted. The biopsy showed gangrene. HOSPITAL COURSE: Mr. Carlos Alberto Rosales is an 81-year-old male, who was a resident of the [facility], who is brought due to fevers and chills for 3 days. Chest x-ray revealed infiltrates of the right mid and lower lung. He was started on IV meropenem and vancomycin. On 11/28, GI consult for Dr. García was ordered for chronic pain. Stool workup was negative and recommended for management of symptoms. Dr. Zarate was also consulted for positive blood cultures, MRSA. He was continued on IV vancomycin and meropenem was discontinued and started on Zosyn. A culture of the left foot abscess showed positive MRSA also. Echocardiogram revealed no vegetation. CT of the left foot showed that osteomyelitis could not be excluded. On 11/30 Dr. Uribe was consulted due to cellulitis of the left transmetatarsal amputation site. Wound care is consulted. Chest x-ray repeated on 12/01 showed a decrease in right middle and lower lobe infiltrates. Repeat blood cultures were negative. On 12/02 Dr. Uribe did a bedside debridement of skin, subcutaneous tissue, muscle and tendon in left foot. At that time, he felt that the patient would benefit from a left lower extremity amputation, and these were discussed with the patient's family. On 12/05, patient showed signs of TOMASA with a creatinine of 1.4 secondary to dehydration on vancomycin and metformin. The metformin was stopped. He was placed on IV fluid hydration. Throughout his stay, his creatinine remained anywhere as low as 1.0 up to as high as 1.6. Prior to discharge is 1.3. On 12/07/2016, Dr. Uribe performed a left plagu-vem-jxsj amputation. There was no complication noted. Patient had been started on daptomycin IV for the left foot MRSA. On 12/09 chest x-ray was clear for any infiltrates. During stay, the patient had poor appetite and was started on IV Clinimix, continued on oral nutrition, started on Marinol. On 12/09, the patient was having more confusion, and urine culture was positive for Pseudomonas aeruginosa. He was originally started on Rocephin and changed to cefepime. PICC line was placed and patient was accepted to LTAC for IV antibiotics and continued care. DISCHARGE VITAL SIGNS: Temperature 98.3 degrees, heart rate 74, respiratory rate 18, blood pressure 148/65, O2 saturation 100% on room air. LAB DATA: On 12/14/2016: CBC with a white blood cell count of 14,000, hemoglobin 9, hematocrit 29, platelet count 298. INR 1.05. Sodium 136, potassium 5.1, BUN 46, creatinine 1.2, glucose 212, calcium 8.7. Urinalysis negative on 12/13/2016. IMAGING: Chest x-ray on admit which was 11/26/2016 showed infiltrates in the mid and lower right lung with small effusions and mild cardiomegaly. Lower extremity CAT scan of the left foot on 11/29/2016 showed postsurgical changes with osteoporosis, soft tissue swelling and bony erosions as described. Osteomyelitis could not be ruled out. On 11/29/2016, echocardiogram showed mild to moderate aortic stenosis with mild aortic regurg, mild tricuspid regurg with a PA pressure of 30- 35 mmHg. There was mild LVH, but the ejection fraction was 65%. There was mild left atrial enlargement, but no valvular vegetations noted. Final chest x-ray on 12/15/2016 showed good placement of the PICC line. There were no new infiltrates. DISCHARGE MEDICATIONS: 1. Tylenol extra-strength 500 p.o. q. 6 hours. 2. Amiodarone 200 mg p.o. daily. 3. Francisco Javier 1 pack p.o. twice daily. 4. Atorvastatin 40 mg p.o. nightly. 5. Plavix 75 mg p.o. daily. 6. Santyl as directed to lateral malleolar wound daily on the right. 7. Apresoline 25 mg p.o. 3 times daily. 8. [place] 10s 1 tab p.o. q. 4 hours p.r.n. 9. Lantus SoloSTAR 15 units subcutaneous daily. 10. Albuterol/Atrovent nebs q. 8 hours p.r.n. 11. Icar C 1 tab p.o. twice daily. 12. Imdur 60 mg p.o. daily. 13. Linzess 145 mcg p.o. daily. 14. Metformin 500 mg p.o. t.i.d. 15. Multivitamin 1 tab p.o. daily. 16. Zofran 4 mg p.o. every 6 hours p.r.n. 17. Seroquel 25 mg p.o. nightly. 18. Zoloft 50 mg p.o. daily. 19. Flomax 0.4 mg p.o. twice daily. 20. Trazodone 50 mg p.o. nightly. 21. Vitamin A 10,000 units p.o. daily. DISCHARGE DIET: Diabetic diet with Glucerna and IV nutrition if needed. DISCHARGE ACTIVITY: As tolerated with physical therapy. DISCHARGE DISPOSITION: Long-term acute care facility. Wound Care Santyl to the right lateral ankle daily. Other wound care instructions per Dr. Uribe. DISCHARGE INSTRUCTIONS: Will need to follow up as outpatient with Dr. Uribe and Dr. Zarate. Dictated by SALLY Poon for Guero Palomares MD cc: SALLY Poon MD
== END 2016-12-15 17:20 ==
LOC: ED 18:59 → 3N 23:22 → SUATTDRO 23:22 → 3N 11-27 00:44
PROVIDERS: ATTEND Internal Medicine

== ENCOUNTER 2017-02-05 09:21 | Inpatient (IN) ==
[2017-02-05] MEDS ORDERED: ASPIRIN PO STA (09:48)
[2017-02-05 10:04] LABS: MANUAL DIFF NEEDED? NO
[2017-02-05 10:12] LABS: BASO% 0.2 % (0.0-0.8); EOS# 0.14 X1000 (0.0-0.7); EOS% 1.3 % (0.0-10.0); HEMATOCRIT 31.4 % (42.0-52.0); HEMOGLOBIN 9.6 g/dL (14.0-18.0); IMM GRAN# 0.12 X1000 (0.0-0.04); IMM GRAN% 1.1 % (0.0-0.5); LYMPH# 1.25 X1000 (1.2-3.4); LYMPH% 11.9 % (20.5-51.1); MCH 28.6 PG (27-31); MCHC 30.6 g/dL (33-37); MCV 93.5 FL (81-99); MONO% 5.7 % (1.7-9.3); MPV 10.8 FL (7.4-10.4); NEUT% 79.8 % (42.2-75.2); PLT 244 X1000 (130-400); RBC 3.36 XMIL (4.7-6.1)
[2017-02-05 10:25] LABS: INR 1.04; PROTIME 10.9 Seconds (9.2-11.7); PTT 28.7 Seconds (22.0-36.0)
--- NOTE | 2017-02-05 10:53 | PROVIDER DOCUMENTATION ---
This chart was entered by Cornelia Bonilla Scribe, acting as scribe for Janeth Rausch PA. HPI-General Adult - General Chief Complaint: Chest Pain Stated Complaint: CP Time Seen by Provider: 02/05/17 09:27 Source: patient Allergies/Adverse Reactions: Patient Allergies Allergy/AdvReac Type Severity Reaction Status Date / Time Penicillins Allergy Severe SWELLING Verified 02/05/17 10:05 levofloxacin [From Levaquin] Allergy Mild RASH Verified 02/05/17 10:05 Home Medications: Home Medication List Medication Instructions Recorded Confirmed Last Taken Type Quetiapine Fumarate [Seroquel] 25 mg PO HS 05/02/15 11/27/16 2 Days Ago History 25 mg Tamsulosin [Flomax] 0.4 mg PO BID 05/02/15 11/27/16 2 Days Ago History 0.4 mg Sertraline [Zoloft] 50 mg PO DAILY 07/11/15 11/27/16 10/30/16 09:00 History Isosorbide Mononitrate E.r. [Imdur] 60 mg PO DAILY 12/25/15 11/27/16 2 Days Ago History 60 mg Amiodarone [Cordarone] 200 mg PO DAILY #30 tablet 12/31/15 11/27/16 2 Days Ago Rx 200 mg Iron Carbonyl/Ascorbic Acid 1 each PO BID #30 tablet 01/26/16 11/27/16 11/27/16 Rx [Icar-C] Acetaminophen [Tylenol Extra 500 mg PO Q6H PRN PRN 07/01/16 11/27/16 08/03/16 History Strength] Ipratropium/Albuterol Sulfate 3 ml IH Q8H PRN PRN 07/01/16 11/27/16 11/27/16 History [Iprat-Albut 0.5-3(2.5) mg/3 ml] Metformin HCl 500 mg PO TID 07/01/16 11/27/16 2 Days Ago History 500 mg Linaclotide [Linzess] 145 mcg PO DAILY 08/03/16 11/27/16 3 Days Ago History 145 mcg Ondansetron HCl [Zofran] 4 mg PO Q6H PRN PRN 02/15/17 06/11/17 02/15/17 History Trazodone HCl 50 mg PO HS 08/03/16 11/27/16 2 Days Ago History 50 mg Hydrocodone/APAP 10 mg/325 mg 1 each PO Q4H PRN PRN #30 tablet 08/05/1611/27/16 Rx [Culver-10] Insulin Glargine,Hum.rec.anlog 15 unit SQ DAILY 10/27/16 11/27/16 2 Days Ago History [Lantus Solostar] 15 units Clopidogrel [Plavix] 75 mg PO DAILY #30 tablet 11/01/16 11/27/16 2 Days Ago Rx 75 mg Collagenase Clostridium Hist. 1 applic TP DIRECTED #30 11/01/16 11/27/16 Unknown Rx [Santyl] oint...g. Hydralazine [Apresoline] 25 mg PO TID #90 tablet 11/01/16 11/27/16 11/27/16 Rx Arginine/Glutamine/Calcium Hmb 1 packet PO BID 11/27/16 11/27/16 2 Days Ago History [Francisco Javier Packet] 1 packet Hydrocodone/APAP 10 mg/325 mg 10 mg PO Q4H PRN PRN 11/27/16 11/27/16 2 Days Ago History [Culver-10] 10-325 mg Multivit,Th Iron,Other Min 1 tab PO DAILY 11/27/16 11/27/16 2 Days Ago History [Thera-M] Vitamin A 10,000 units PO DAILY 11/27/16 11/27/16 2 Days Ago History 86681 units ATORVAstatin [Lipitor] 40 mg PO QHS tablet 12/15/16 Unknown Rx - History of Present Illness -Gen Adult Nature of Presenting Problems: PT IS A 81 YEAR OLD MALE WHO HAS A HX OF HEART ATTACKS AND RENAL CANCER WHO CAME TO THE ED WITH A CC OF CHRONIC ABDOMINAL PAIN, HTN 220/180, AT THAT POINT HAD CHEST PAIN NO RADIATION. 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 DAUGHTER REPORTS SLURRED SPEECH, NO SLURRED SPEECH ON EXAM. PT IS A DNR. DENIES SOB, NEW ABDOMINAL PAIN, CHANGES IN BOWEL MOVEMENTS , NO CHANGES IN HIS LEFT STUMP. PT IS A POOR HISTORIAN. Review of Systems - Adult - REVIEW OF SYSTEMS - ADULT Constitutional: denies: chills, fever Eyes: reports: no symptoms reported Ears, Nose, Mouth & Throat: reports: no symptoms reported Cardiovascular: reports: chest pain. denies: heart murmur, orthopnea Respiratory: denies: cough, shortness of breath Gastrointestinal: reports: abdominal pain. denies: diarrhea, nausea, vomiting Genitourinary: reports: no symptoms reported Musculoskeletal: reports: no symptoms reported Integumentary: reports: no symptoms reported Neurological: reports: no symptoms reported Psychiatric: reports: no symptoms reported Endocrine: reports: other (high blood pressure). denies: goiter, heat intolerance Hematologic/Lymphatic: reports: no symptoms reported Allergic/Immunologic: reports: no symptoms reported All Other Systems: Reviewed and Negative Past History - Adult - PAST MEDICAL HISTORY-ADULT Review of Records: reports: Old Records Reviewed, Nursing Assessment Review Cardiovascular: reports: A-Fib, CAD, CHF, HTN, palpitations, PVD Gastrointestinal: reports: GERD Genitourinary: reports: cancer Neurological: reports: spinal cord/brain injury Endocrine/Immune: reports: Diabetes - PRIOR SURGERIES/PROCEDURES Surgical/Procedure History: reports: back/neck (x4; neck Sx), other (head hematoma) - IMMUNIZATION STATUS Childhood Immunizations: NUTD, See Nurse Assessment Flu Vaccine: See Nurse Assessment Physical Exam-General - PHYSICAL EXAM-ADULT Initial Vital Signs Reviewed: Yes - CONSTITUTIONAL General Appearance: appears well, alert - EYES Eyes: PERRL/EOMI, pink conjunctivae - HEAD, EARS, NOSE, MOUTH & THROAT HENMT: normocephalic/atraumatic, moist mucous membranes - NECK Neck: non-tender, full range of motion - RESPIRATORY Respiratory: chest non-tender, lungs clear - CARDIOVASCULAR Cardiovascular: normal peripheral pulses, regular rate, rhythm - GASTROINTESTINAL (ABDOMEN) Abdominal Exam: normal bowel sounds, soft, tenderness - MUSCULOSKELETAL Back Exam: normal inspection, no CVA tenderness, other (RIGHT SIDED TRAP MUSCLE TENDERNESS) Extremity: other (left bka) - SKIN Integumentary: normal color, normal turgor - NEUROLOGIC Neurologic: grossly normal - PSYCHIATRIC Psych/Mental Status: normal mood/affect, normal thought content, normal thought process, oriented x 3 Progress - PLAN OF CARE/RESULTS Progress/Plan/Lab Results: Vital Signs - 8 hr 02/05/17 09:45 Temperature 97.4 F L Pulse Rate 60 Respiratory Rate 22 Blood Pressure 202/86 O2 Sat by Pulse Oximetry 98 Laboratory Results - last 24 hr 02/05/17 02/05/17 02/05/17 09:30 09:30 09:30 WBC 10.48 RBC 3.36 L Hgb 9.6 L Hct 31.4 L MCV 93.5 MCH 28.6 MCHC 30.6 L RDW Std Deviation 15.6 H Plt Count 244 MPV 10.8 H Immature Gran % (Auto) 1.1 H Neut % (Auto) 79.8 H Lymph % (Auto) 11.9 L [place] % (Auto) 5.7 Eos % (Auto) 1.3 Baso % (Auto) 0.2 Immature Gran # (Auto) 0.12 H Neut # (Auto) 8.35 H Lymph # (Auto) 1.25 [place] # (Auto) 0.60 H Eos # (Auto) 0.14 Baso # (Auto) 0.02 PT 10.9 INR 1.04 PTT (Actin FS) 28.7 D-Dimer 1.52 H Orders Category Date Time Status Cardiac Monitoring DIRECTED Care 02/05/17 09:48 Active Oxygen Therapy- ED Nursing DIRECTED Care 02/05/17 09:48 Active Saline Loc NOW Care 02/05/17 09:48 Active CHEST-2 VIEWS [RAD] Stat Exams 02/05/17 09:48 Taken CBC WITH ELECTRONIC DIFF [HEME] Stat Lab 02/05/17 09:30 Completed CK PROFILE [SP CHEM] Stat Lab 02/05/17 10:23 Ordered COMPREHENSIVE METABOLIC PANEL [CHEM] Stat Lab 02/05/17 10:23 Ordered D-DIMER [CHEM] Stat Lab 02/05/17 09:30 Completed LACTATE, PLASMA [CHEM] Stat Lab 02/05/17 10:23 Ordered MAGNESIUM [CHEM] Stat Lab 02/05/17 10:23 Ordered PRO B-NATRIURETIC PEPTIDE Stat Lab 02/05/17 10:23 Ordered PROTIME WITH INR [COAG] Stat Lab 02/05/17 09:30 Completed PTT [COAG] Stat Lab 02/05/17 09:30 Completed TROPONIN T Stat Lab 02/05/17 10:23 Ordered Aspirin Med 02/05/17 09:48 Discontinued 325 mg PO STAT STA EKG [EKG] Stat Ther 02/05/17 09:48 Ordered Discussed patient with Dr. Olmos, agrees with treatment disposition and plan. Result Diagrams: 02/05/17 09:30 02/05/17 10:46 - REASSESSMENT Reassessment #1 Time Reassessed: 12:55 Status: other (On the way back from CT, patient becoma diaphoretic, with increased chest pain. I rechecked the BP, 268/98 with HR of 58.) - CONSULTS/PCP/HOSPITALIST Notification #1 *Consult/PCP/Hospitalist*: Hospitalist Time Discussed: 13:38 Reason/Comments: Hypertensive emergency Consult Disposition: Admit Departure - Departure Date of Disposition Decision: 02/05/17 Time of Disposition Decision: 13:38 DIAGNOSIS: Hypertensive emergency, Pleural effusion on right Disposition: ADMITTED INPATIENT 09 Certified Medical Emergency: Emergent Condition: Fair - Critical Care Note This patient required my direct & personal management of CC.: No Attestation - Physician/ TOSHIA Attestation Patient care was provided by Advanced Practice Provider:: Yes Advanced Practice Provider:: Janeth Rausch Advanced Practice Provider documentation review:: The Mid-level provider documentation, treatment plan and medical decision making was reviewed by the physician who agrees with all treatment and medical decision making by the MLP. The physician spent face to face time with patient:: No Advanced Practice Provider documentation review:: Supervising physician onsite and consulted in the evaluation and care of this patient. The physician did not have a face to face encounter with the patient. This chart was documented by the indicated scribe, (Cornelia Bonilla Scribe) and accurately reflects the services I performed and decisions made by me, Janeth Rausch PA, as attested by the provider's signature.
[2017-02-05 11:13] LABS: CALCIUM 9.1 mg/dL (8.8-10.2); MAGNESIUM 1.9 mg/dL (1.5-2.7); POTASSIUM 5.1 mmol/L (3.5-5.1); TOTAL BILIRUBIN 0.38 mg/dL (0.20-1.00); TOTAL PROTEIN 7.8 g/dL (6.3-8.3)
--- NOTE | 2017-02-05 12:07 | Diag Imaging Result Doc PS360 ---
EXAM: CHEST-2 VIEWS INDICATION: CP TECHNIQUE: 2 views COMPARISON: 12/15/2016 FINDINGS: There are consolidations at both lower lung zones, more prominent on the right. On the right, this is actually fairly similar to the previous study. There is a right pleural effusion that appears slightly larger than the previous study. Cardiac silhouette is stable. IMPRESSION: Bibasilar infiltrates as described suggesting pneumonia with a right pleural effusion. Electronically signed by Johnathan Baltazar 02/05/2017 12:04 PM
[2017-02-05] MEDS ORDERED: APRESOLINE IV ONE ×2 (12:56→13:31)
--- NOTE | 2017-02-05 13:26 | Diag Imaging Result Doc PS360 ---
EXAM: CT ANGIOGRM/PULMONARY ARTERIES INDICATION: sob, chest pain, elevatedd-dmer TECHNIQUE: Dose reduction protocol was used. COMPARISON: 02/12/2015 FINDINGS: There is no evidence of pulmonary embolism. There is stable marked cardiomegaly. There is fairly extensive aortic atherosclerotic calcification. There is no evidence of dissection. There is mild subaneurysmal ectasia of the ascending aorta measuring up to 3.9 cm in diameter, stable. There are multiple calcified mediastinal and hilar lymph nodes indicating prior granulomatous disease. There is very severe pulmonary emphysema. There is a small loculated pleural fluid collection on the right with thickened pleura at its periphery. There is a small to moderate-sized left pleural effusion. There is bibasilar atelectasis and there are airspace consolidations at both lower lung zones. There is also probably a component of fibrosis on the right. There is a 1.9 cm nodule in the left lower lobe. Although nonspecific it is probably inflammatory. Follow-up chest CT is recommended initially in 3 months. There is thickened bronchial mucosa at both lung bases indicating bronchitis. There are a few calcified granulomata. IMPRESSION: 1.No evidence of pulmonary embolism. 2.Severe emphysema. 3.Bibasilar consolidations indicating pneumonia with superimposed fibrosis on the right and bibasilar atelectasis. 4.Nodular density at the left lower lobe that is probably inflammatory. Follow-up is recommended, however. 5.Bilateral pleural effusions with loculation on the right. 6.Cardiomegaly. 7.Other incidental/nonacute findings detailed above. Electronically signed by Johnathan Baltazar 02/05/2017 1:23 PM
[2017-02-05] MEDS ORDERED: ZOFRAN ODT PO ONE (13:35)
[2017-02-05] MEDS ORDERED: D10W 1,000 ML IV ONE (14:36)
[2017-02-05] MEDS ORDERED: D50W SYRINGE ONE (14:49)
[2017-02-05] MEDS ORDERED: D50W SYRINGE IV ONE (14:53)
--- NOTE | 2017-02-05 15:11 | ED EKG INTERP ---
This chart was entered by Cornelia Bonilla Scribe, acting as scribe for Carlos Olmos MD. EKG Interpretation - EKG Time of EKG reading by physician:: 09:25 EKG Read and Signed by:: Carlos Olmos EKG Interpretation (*Must complete 3 of following elements*): Abnormal Rate: 60 Rhythm: sinus rhythm w 1st degree AV block QRS: RBB - EKG # 2 Time of EKG reading by physician:: 12:54 EKG Read and Signed by:: Carlos Olmos EKG Interpretation (*Must complete 3 of following elements*): Abnormal Rate: 57 (septal infarct) Rhythm: sinus bradycardia QRS: RBB Attestation - Physician/ TOSHIA Attestation Patient care was provided by Advanced Practice Provider:: No The physician spent face to face time with patient:: Yes Advanced Practice Provider documentation review:: Supervising physician onsite and consulted in the evaluation and care of this patient. The physician did have a face to face encounter with the patient. This chart was documented by the indicated scribe, (Cornelia Bonilla Scribe) and accurately reflects the services I performed and decisions made by me, Carlos Olmos MD, as attested by the provider's signature.
--- NOTE | 2017-02-05 15:32 | Diag Imaging Result Doc PS360 ---
EXAM: CT HEAD W/O CONTRAST TECHNIQUE: Dose reduction protocol was used. Note that although this was a CT head without contrast, IV contrast was administered a few hours prior for a CTA chest. INDICATION: htn, headache, diaphoretic COMPARISON: None. FINDINGS: There is stable brain atrophy. There is stable encephalomalacia involving the left occipital lobe. There are several stable chronic lacunar infarcts involving the periventricular white matter and deep deng matter bilaterally. There is no definite acute infarct given the limited sensitivity of CT versus MRI. There is no discrete intracranial mass, mass effect, or intracranial hemorrhage. There is a right-sided craniotomy defect. There is extensive chronic right maxillary sinusitis with subtotal opacification of the right maxillary sinus. Surrounding soft tissues and bony structures are essentially unremarkable, otherwise. IMPRESSION: Stable chronic changes as described but no evidence of acute intracranial pathology. Electronically signed by Johnathan Baltazar 02/05/2017 3:29 PM
--- NOTE | 2017-02-05 15:40 | HISTORY AND PHYSICAL ---
HISTORY OF PRESENT ILLNESS: Apparently, he has become more lethargic, less responsive. Seems to be not eating, and she sent him to the emergency room. When he was last here, I admitted him. He was last admitted here for pneumonia in November 2009. He has multiple medical problems. Diabetes mellitus type 2, peripheral vascular disease, status post left shrpk-fzo-burg amputation, coronary artery disease, history of myocardial infarction, history of dementia, history of CVA, atrial fibrillation, intracranial hemorrhage in the past. PAST SURGICAL HISTORY: 1. Tibial bypass coronary stent. 2. Left forefoot amputation, 3. Back surgery. 4. Neck surgery. 5. Craniotomy for intracranial bleed. 6. Left ybwgr-mwp-ocft amputation, I believe. ALLERGIES: Penicillin, Levaquin. SOCIAL HISTORY: Former smoker. History of alcohol illicit drugs. Mostly wheelchair- bound. Able to transfer with assistance ,until recently. FAMILY HISTORY: Positive for coronary artery disease in father. REVIEW OF SYSTEMS: General: I am unable to elicit. Apparently, he has been losing weight, not eating much, but he really has not responded to me much at all. PHYSICAL EXAMINATION: VITAL SIGNS: Temperature 97.4 degrees, pulse 56, respirations 16, blood pressure 269/106. LUNGS: Clear in all lung mckenzie. CARDIOVASCULAR: Regular rhythm and rate, without murmur or S3. ABDOMEN: Soft. SKIN: Warm and dry. LABORATORIES: White blood cell count 10,480, hematocrit 31, platelet count 244,000. Sodium 139, potassium 5.1, chloride 102, bicarb 27, BUN 28, creatinine 1.2. Magnesium was 1.9. ProBNP 1848. Pro time was 10.9, PTT was 28. DIAGNOSTICS: Chest x-ray: Bibasilar infiltrates described, suggesting pneumonia, right pleural effusion. Pulmonary angiogram: No evidence of pulmonary embolism. Severe emphysema. Bibasilar consolidation, including pneumonia. Superimposed infiltrates in the right basilar atelectasis. Nodular density, left lower lobe, probably inflammatory. Bilateral pleural effusions. Cardiomegaly. ASSESSMENT AND PLAN: 1. Change in mental status. It looks like he has pneumonia. He has bilateral atelectasis, right base. May also have infiltrate. We will treat him empirically with some IV fluids, and we will put him on Zosyn for now. Though he is allergic to penicillin, and he is allergic to levofloxacin as well, I think we are going to need to try and use Rocephin and treat him. 2. Mild peripheral vascular disease, aware. 3. History of coronary artery disease. 4. Dementia. 5. Chronic obstructive pulmonary disease 6. He had a history of diabetic foot ulcers. He had a left qgmev-bpc-[id number] amputation in November of this year, and the stump appears to have healed well. 7. He also history of benign prostatic hypertrophy, for which he is on Flomax. I am going to give him fluids of normal saline at 85 mL an hour. No code, level 1. I am going to hold his Lipitor for now. Try and continue his other medications, but he is not waking up, so he is not able to swallow now. He is supposed to get amiodarone, I think that is for chronic atrial fibrillation, and he was getting 200 mg a day. He is getting Plavix 75 mg a day, hydralazine 25 mg t.i.d. We will hold the [place]. We will put him on sliding scale. Note that his sugar was 61, so he may have just hypoglycemia, and we will give an ampule of D50. cc: Daniele Villarreal MD
[2017-02-05] MEDS ORDERED: ZOFRAN IV PRN (17:11)
[2017-02-05] MEDS ORDERED: TYLENOL PO PRN (17:11)
[2017-02-05] MEDS ORDERED: D50W SYRINGE IV PRN (17:11)
[2017-02-05] MEDS ORDERED: CATAPRES-TTS-2 TD SCH (17:11)
[2017-02-05] MEDS ORDERED: D5 NS 1,000 ML IV ONE (17:11)
[2017-02-05] MEDS: DUONEB (A & A) INH PRN (20:12)
[2017-02-06] MEDS: D5 NS 1,000 ML IV SCH ×3 (05:34→20:33)
[2017-02-06 05:58] LABS: MANUAL DIFF NEEDED? NO
[2017-02-06 06:23] LABS: EOS# 0.01 X1000 (0.0-0.7); EOS% 0.1 % (0.0-10.0); HEMATOCRIT 30.9 % (42.0-52.0); HEMOGLOBIN 9.4 g/dL (14.0-18.0); IMM GRAN# 0.14 X1000 (0.0-0.04); IMM GRAN% 1.5 % (0.0-0.5); LYMPH# 1.19 X1000 (1.2-3.4); LYMPH% 12.8 % (20.5-51.1); MCH 27.7 PG (27-31); MCHC 30.4 g/dL (33-37); MCV 91.2 FL (81-99); MONO# 0.76 X1000 (0.11-0.59); MONO% 8.2 % (1.7-9.3); MPV 10.6 FL (7.4-10.4); NEUT% 77.4 % (42.2-75.2); PLT 256 X1000 (130-400); RBC 3.39 XMIL (4.7-6.1)
[2017-02-06 06:25] LABS: INR 1.06; PROTIME 11.2 Seconds (9.2-11.7); PTT 30.1 Seconds (22.0-36.0)
--- NOTE | 2017-02-06 06:28 | EKG Report ---
Test Performed on : 02/06/2017 05:32:12 AM Test Reason : chest pain Blood Pressure : / mmHG Vent. Rate : 064 BPM Atrial Rate : 064 BPM P-R Int : 432 ms QRS Dur : 158 ms QT Int : 488 ms P-R-T Axes : 043 101 045 degrees QTc Int : 503 ms Sinus rhythm. with 1st degree AV block. Possible Left atrial enlargement Right bundle branch block Abnormal ECG When compared with ECG of 05-FEB-2017 12:54, (Unconfirmed) T wave inversion less evident in V1-V2 Nonspecific T wave abnormality far lateral precordial leads Clinical Correlation advised Confirmed by Too Martinez DO ([id number]) on 02/09/2017 5:03:13 PM
--- NOTE | 2017-02-06 09:58 | Diag Imaging Result Doc PS360 ---
CHEST-2 VIEWS - 02/06/2017 INDICATION: sob TECHNIQUE: COMPARISON: 02/05/2017 FINDINGS: Stable cardiomegaly. Stable bibasilar infiltrates right greater than left. Stable small pleural effusions right greater than left. Stable COPD. No new infiltrates. IMPRESSION: No change from prior. Electronically signed by Steven Carranza 02/06/2017 9:56 AM
[2017-02-06] MEDS ORDERED: ROCEPHIN 2 GM/NS 2 GM/50 ML IVPB IV SCH (16:00)
[2017-02-06] MEDS: DUONEB (A & A) INH PRN (16:04)
--- NOTE | 2017-02-06 16:21 | PROGRESS NOTE ---
DATE: 02/06/2017 SUBJECTIVE: Patient reports feeling fine. Family who is at bedtime report that his mental status is much better. He is more orientated. He is not complaining of anything at this time. OBJECTIVE: Vital Signs: Temperature 98.4, heart rate 63, respiratory rate 20, blood pressure 171/50, O2 saturation 95% on room air. General: This is an 81-year-old male lying in bed in no acute distress. HEENT: Head is normocephalic, atraumatic. Anicteric sclerae and pale conjunctivae. Mucous membranes moist. Neck: Supple. No JVD noted. No carotid bruits. No lymphadenopathy. No thyromegaly. Cardiovascular: S1, S2 heard. No murmurs, gallops, or rubs. Regular rate and rhythm. Respiratory: Clear bilaterally to auscultation. No work of breathing or using accessory muscles. Abdomen: Soft. Nontender to palpation. Bowel sounds present. No organomegaly. Extremities: No clubbing, cyanosis, or edema. There is a left tjgrj-etu-znme amputation. In the right leg there is a lesion near to the ankle covered by dressing. Neurological: Patient moves 4 extremities. Alert and oriented x3. LABORATORY DATA: White cell count 9.32, hemoglobin 9.4, hematocrit 30.9, platelets 256,000. No BMP today. Normal troponins. ASSESSMENT AND PLAN: 1. Healthcare-associated pneumonia. The patient was sent from the intermediate to the ER because the changed mental status. Also, patient was apparently complaining or shortness of breath. Suspected pulmonary embolus. The CT angiogram of the chest did show pneumonia. The patient is allergic to levofloxacin and penicillin. He was started yesterday on ceftriaxone. We will continue with the same management. 2. Mild peripheral vascular disease. Aware. 3. Dementia. Patient is more oriented and alert today. 4. History of coronary artery disease, stable. 5. Chronic obstructive pulmonary disease. Patient is not in any exacerbation. We will continue with the breathing treatments p.r.n. 6. History of diabetic ulcer. We are going to consult Wound Care for the lesion in the right foot. 7. Benign prostatic hypertrophy. Currently on Flomax. cc: Zac Roque MD
[2017-02-06] MEDS: APRESOLINE IV PRN (21:45)
[2017-02-07] MEDS: D5 NS 1,000 ML IV SCH ×2 (03:47→16:07)
[2017-02-07] MEDS: APRESOLINE IV PRN (05:21)
[2017-02-07] MEDS: DUONEB (A & A) INH PRN ×2 (07:13→15:33)
[2017-02-07] MEDS ORDERED: NORCO-5 PO PRN (09:23)
[2017-02-07] MEDS ORDERED: DUONEB (A & A) INH PRN (09:25)
--- NOTE | 2017-02-07 09:58 | PROGRESS NOTE ---
DATE: 02/07/2017 SUBJECTIVE: The patient reports feeling fine, although he reports back pain, and the medication that he is getting here is not controlling the pain. He is more oriented. No shortness of breath reported. No fever or chills. OBJECTIVE: Vital Signs: Temperature 98.2 degrees, heart rate 74, respiratory rate 20, blood pressure 181/57, O2 saturation 96% on room air. General: This is an 81-year-old male, lying in bed in no acute distress. HEENT: Head is normocephalic and atraumatic. Anicteric sclerae. Pale conjunctivae. Mucous membranes moist. Neck: Supple. No JVD noted. No carotid bruits. No lymphadenopathy. No thyromegaly. Cardiovascular: S1 and S2 heard. No murmurs, gallops, or rubs. Regular rate and rhythm. Respiratory: Clear bilaterally to auscultation. No work of breathing or use of accessory muscles. Abdomen: Soft, nontender to palpation. Bowel sounds present. No organomegaly. Extremities: No clubbing, cyanosis, or edema. There is a left below-knee amputation. On the right foot, there is a lesion near the ankle, covered by dressing. Neurologic: The patient moves all 4 extremities. Alert and oriented x3. LABORATORY DATA: None. ASSESSMENT AND PLAN: 1. Healthcare-associated pneumonia. The patient was sent from nursing come to the emergency room because of changes in mental status. We suspected that this patient has pulmonary embolism, but CT angio of the chest did not show any pulmonary embolism, but shows pneumonia. Considering that this patient is allergic to penicillin, he was started on ceftriaxone. He is doing fine. Will continue the same management for today. 2. Mild peripheral vascular disease. Aware. 3. Dementia. The patient is more oriented definitely today. 4. History of coronary artery disease, stable. The patient is not complaining of any chest pain. 5. Chronic obstructive pulmonary disease. The patient is not in exacerbation. Will continue with home doses. 6. History of diabetic ulcer. Wound Care has been consulted. 7. Benign prostatic hypertrophy. Currently on Flomax twice daily. Overall, this patient is doing good, complaining of back pain, but his medication have been adjusted today, that includes [place] 10 mg every 4 hours. I think if this patient continues to feel better, not short of breath, not requiring any oxygen, not spiking fever, and white cell count back to normal, he can be discharged on oral antibiotics, like Omnicef at home. Will see how this patient does tomorrow. cc: Zac Roque MD
[2017-02-07] MEDS: APRESOLINE PO SCH ×3 (10:03→19:23)
[2017-02-07] MEDS: GLUCOPHAGE PO SCH ×3 (10:03→19:23)
[2017-02-07] MEDS: NORCO-10 PO PRN ×2 (10:03→14:59)
[2017-02-07] MEDS ORDERED: ROCEPHIN 2 GM in NS 50 ML IV SCH (17:00)
[2017-02-07] MEDS ORDERED: DESYREL PO SCH (21:00)
[2017-02-07] MEDS ORDERED: NEURONTIN PO SCH (21:00)
[2017-02-07] MEDS ORDERED: LIPITOR PO SCH (21:00)
[2017-02-07] MEDS ORDERED: REMERON PO SCH (21:00)
[2017-02-07] MEDS: FLOMAX PO SCH (21:10)
[2017-02-08] MEDS: SANTYL OINT TOP SCH ×2 (04:53→10:17)
[2017-02-08] MEDS: D5 NS 1,000 ML IV SCH ×2 (04:53→16:07)
[2017-02-08 06:58] LABS: MANUAL DIFF NEEDED? NO
[2017-02-08 07:02] LABS: BASO% 0.1 % (0.0-0.8); EOS# 0.25 X1000 (0.0-0.7); EOS% 3.6 % (0.0-10.0); HEMOGLOBIN 8.8 g/dL (14.0-18.0); IMM GRAN# 0.11 X1000 (0.0-0.04); IMM GRAN% 1.6 % (0.0-0.5); LYMPH# 1.64 X1000 (1.2-3.4); LYMPH% 23.5 % (20.5-51.1); MCH 28.2 PG (27-31); MCHC 30.3 g/dL (33-37); MCV 92.9 FL (81-99); MONO# 1.07 X1000 (0.11-0.59); MONO% 15.4 % (1.7-9.3); MPV 10.5 FL (7.4-10.4); NEUT% 55.8 % (42.2-75.2); PLT 212 X1000 (130-400); RBC 3.12 XMIL (4.7-6.1)
[2017-02-08 07:30] LABS: AGAP 13; BUN 23 mg/dL (8-22); CALCIUM 8.6 mg/dL (8.8-10.2); CHLORIDE 104 mmol/L (98-107); COSMO 287; POTASSIUM 4.3 mmol/L (3.5-5.1); SODIUM 140 mmol/L (136-145); TCO2 23 mmol/L (25-35)
[2017-02-08] MEDS: DUONEB (A & A) INH PRN ×2 (07:54→15:41)
[2017-02-08] MEDS ORDERED: IMDUR PO SCH (09:00)
[2017-02-08] MEDS ORDERED: LANTUS SUBQ SCH (09:00)
[2017-02-08] MEDS ORDERED: CORDARONE PO SCH (09:00)
[2017-02-08] MEDS ORDERED: LINZESS PO SCH (09:00)
[2017-02-08] MEDS ORDERED: LACTULOSE PO SCH (09:00)
[2017-02-08] MEDS ORDERED: PLAVIX PO SCH (09:00)
[2017-02-08] MEDS ORDERED: SYNTHROID PO SCH (09:00)
[2017-02-08] MEDS: FLOMAX PO SCH (10:16)
[2017-02-08] MEDS: APRESOLINE PO SCH ×2 (10:16→13:25)
[2017-02-08] MEDS: GLUCOPHAGE PO SCH ×2 (10:16→13:25)
--- NOTE | 2017-02-08 15:29 | DISCHARGE SUMMARY ---
ADMISSION DATE: 02/05/2017 DISCHARGE DATE: 02/08/2017 CONSULTATIONS: None. PERTINENT PROCEDURES: 1. Pulmonary arteriogram showed no evidence of pulmonary embolus. Severe emphysema with bibasilar consolidations, including pneumonia with superimposed fibrosis on the right, and bibasilar atelectasis. Nodular density at the left lower lobe that is probably inflammatory. Bilateral pleural effusion with loculation on the right. Cardiomegaly. 2. Head CT shows stable chronic changes, but no evidence of acute intracranial pathology. 3. Follow up chest x-ray showed no change from prior. Stable bibasilar infiltrates, right greater than left. Stable small pleural effusions, right greater than left. Stable COPD. No new infiltrates. Stable cardiomegaly. DISCHARGE DIAGNOSES: 1. Healthcare-associated pneumonia. The patient is from [facility]. She will continue on Omnicef. 2. Mild peripheral vascular disease. Aware. 3. Dementia, stable. 4. Coronary artery disease. Stable. 5. Chronic obstructive pulmonary disease, without exacerbation. 6. Stage III ulcer to the right lateral ankle present on admission. Followed by Wound Care. 7. BPH. Continue Flomax. HOSPITAL COURSE: Mr. Rosales is an 81-year-old male who carries a past medical history of diabetes mellitus type 2, peripheral vascular disease, status post left [id number] amputation, coronary artery disease, DC, dementia, CVA, atrial fibrillation and intracranial hemorrhage in the past. The patient had been at the prison at [facility]. He had become more lethargic, less responsive. He was not eating well. He was sent to the emergency room. Chest x-ray showed bilateral infiltrates, suggesting pneumonia and right pleural effusion. Pulmonary arteriogram showed no PE. Severe emphysema. Bilateral consolidation, including pneumonia and superimposed infiltrates. Right basilar atelectasis. Nodular density and left lower lobe pneumonia, probably inflammatory. Bilateral pleural effusions. Cardiomegaly. He was started on IV antibiotics, as well as IV fluids. He was continued to be a DNR, level 1. Frequent neuro checks. The patient, per the family, is back to his baseline. He is more oriented. He does not complain of any shortness of breath. No fever or chills. He has been afebrile. He has had no white count. He is not requiring any supplemental O2. He is going to be discharged on oral antibiotics with Omnicef back to [facility]. VITAL SIGNS: Temperature is 98.9 degrees, heart rate 63, respirations 16, blood pressure 190/73, O2 is 97% on 2 L nasal cannula. DISCHARGE DIET: Regular. DISCHARGE MEDICATIONS: As per Dr. Alexander. Please see AUG. FOLLOWUP: Mr. Rosales is being discharged back to [facility]. He will continue to take all p.o. antibiotics as instructed. He was a DNR level 1 while in our facility. He can return to the ED for any worsening of symptoms. Dictated by SALLY Morales for Zac Roque MD cc: Zac Roque MD
[2017-02-08 16:42] VITALS: BP 192/65
== END 2017-02-08 17:37 ==
LOC: SUPCPDRO → EDSEX → ED 09:21 → EDIPHOLD 16:41 → 4N 20:41 → 3N 02-06 13:56
PROVIDERS: ATTEND Internal Medicine